=== PATIENT | female | born 1950 | race Caucasian/White ===

== ENCOUNTER 2023-04-04 11:32 | Inpatient (IN) | payer MEDICARE, MEDICAID, SELFPAY ==
[2023-04-04] VITALS (85 sets, daily range): BP systolic 107–156; BP diastolic 41–80; PULSE 49–94; RESP 7–27; TEMP 36.2–37.3; O2SAT 82–100; BMI 22.0; BMI 24.0
--- NOTE | 2023-04-04 11:54 | ED.GENADUL1 ---
HPI - General Adult General Chief complaint: Shortness of Breath/Dyspnea Stated complaint: SHORTNESS OF BREATH Time Seen by Provider: 04/04/23 11:44 Source: patient and family Mode of arrival: Wheelchair Limitations: no limitations History of Present Illness HPI narrative: here complaining of multiple multiple complaints. She hasn't seen her doctor who moved out of the community recently. She uses oxygen at 4 L chronically for chronic obstructive pulmonary disease. She quit smoking one year ago. She has chief complaint today of increasing shortness of breath and abdominal pain. She lives with her son, but he works most the day. He says that she's been getting forgetful. She's had falls at home. He says that she is sleepy all the time. We have no old charts on her here. We have no old EKGs. She denies any heaviness or pressure in her chest. She has nausea witthout vomiting. She has dizziness. She has noise in her ears.medication list does not list any NSAIDs. Related Data Home Medications Medication Instructions Recorded Confirmed albuterol sulfate 90 mcg/actuation 2 puff inhalation Q4H PRN 04/04/23 04/04/23 aerosol inhaler shortness of breath or wheezing atorvastatin 20 mg tablet 20 mg PO DAILY 04/04/23 04/04/23 budesonide 0.5 mg/2 mL suspension 0.5 mg inhalation DAILY 04/04/23 04/04/23 for nebulization fluticasone fur. 100 mcg-umeclid 1 inh inhalation Q24H 04/04/23 04/04/23 62.5 mcg-vilant 25 mcg inhalat.powder (Trelegy Ellipta) levothyroxine 125 mcg tablet 125 mcg PO DAILY 04/04/23 04/04/23 pregabalin 150 mg capsule 150 mg PO Q8H 04/04/23 04/04/23 quetiapine 100 mg tablet 100 mg PO BID 04/04/23 04/04/23 Allergies Allergy/AdvReac Type Severity Reaction Status Date / Time No Known Drug Allergies Allergy Verified 04/04/23 11:36 PFSH PFSH Social History Smoking status: Former smoker Exam Narrative Exam Narrative: 72-year-old female appears older than stated age. She does appear pale. Vital signs are name of normal. She's not tachycardic but she is on a beta madhu. Blood pressure is normal she's not cool clammy or diaphoretic. She is oriented ?3 somewhat of a limited historian and her answer to most questions is that she's had these symptoms for a while additionally she said that she has noticed her bowel movements have been blackish color for a while. Same thing with her abdominal discomfort. She does not have any acute respiratory distress her pulse oximetry is a hundred percent on 4 L. Constitutional there is no scleral icterus. Conjunctiva ispale. ENT shows poor dental repair Airways intact. Lungs are clear with no wheezes rales but there is some scattered rhonchi. There is no retractions or coughing. Heart sounds sinus rhythm confirmed on 12-lead EKG with no ectopy. Abdomen she has mid. Umbilical discomfort sympttomatically but no masses, no hepatosplenomegaly. No rebound or rigidity. Rectal examination shows dark brownish stool is not melanotic. It eventually tested positive for occult blood. Extremities showed no evidence of edema or swelling. Constitutional Vital Signs, click to edit/add: Last Vital Signs Temp 98 F 04/04/23 13:55 Pulse 58 L 04/04/23 15:00 Resp 17 04/04/23 15:00 BP 135/45 L 04/04/23 15:00 Pulse Ox 100 04/04/23 14:30 O2 Del Method Nasal Cannula 04/04/23 12:33 O2 Flow Rate 4 04/04/23 12:33 Course Vital Signs Vital signs: Vital Signs Temperature 97.6 F 04/04/23 11:36 Pulse Rate 94 H 04/04/23 11:36 Respiratory Rate 20 04/04/23 11:36 Blood Pressure 107/47 L 04/04/23 11:36 Pulse Oximetry 95 04/04/23 11:36 Oxygen Delivery Method Nasal Cannula 04/04/23 11:36 Oxygen Delivery Flow Rate 4 04/04/23 11:36 Temperature 98 F 04/04/23 13:55 Pulse Rate 58 L 04/04/23 15:00 Respiratory Rate 17 04/04/23 15:00 Blood Pressure 135/45 L 04/04/23 15:00 Pulse Oximetry 100 04/04/23 14:30 Oxygen Delivery Method Nasal Cannula 04/04/23 12:33 Oxygen Delivery Flow Rate 4 04/04/23 12:33 Medical Decision Making [facility] Narrative Medical decision making narrative: patient's liver initial after test came back extremely low hemoglobin our platelets and white blood cell call count is appropriate. Two units packed red blood cells were ordered stat. She is actually tolerated this well suggesting this is a chronic blood loss. She is given Protonix intravenously. The case was discussed, at the hospital's request with Dr. rasheed surgeon on-call. He believes the patient should be stabilized before any type of endoscopy procedure be performed. We feel this is probably a slow chronic bleed. The hospital's has agreed to admit her to ICU. She's getting blood transfusions at the time of this dictation. All this was discussed with the son and the patient were in agreement with treatment and therapies Lab Data Labs: Lab Results 04/04/23 04/04/23 04/04/23 Range/Units 11:49 12:35 12:54 WBC 4.7 (4.0-11.0) 10^3/uL RBC 1.74 L (4.20-5.40) 10^6/uL Hgb 3.6 L* (12.0-16.0) g/dL Hct 15.5 L* (36.0-48.0) % MCV 89.1 (81.0-99.0) fL MCH 20.7 L (26.7-34.0) pg MCHC 23.2 L (29.9-35.2) g/dL RDW 22.5 H (11.0-15.0) % Plt Count 320 (150-450) 10^3/uL MPV 12.7 (9.5-13.5) fL Neut % (Auto) 61.1 (43.0-75.0) % Lymph % (Auto) 31.2 (20.5-60.0) % [place] % (Auto) 6.0 (1.7-12.0) % Eos % (Auto) 0.4 L (0.9-7.0) % Baso % (Auto) 0.9 (0.2-2.0) % Neut # (Auto) 2.9 (1.4-6.5) 10^3/uL Lymph # (Auto) 1.5 (1.2-3.8) 10^3/uL [place] # (Auto) 0.3 (0.3-0.8) 10^3/uL Eos # (Auto) 0.0 (0.0-0.7) 10^3/uL Baso # (Auto) 0.0 (0.0-0.1) 10^3/uL Abs Immat Gran (auto) 0.02 (0.00-0.03) 10^3/uL Imm/Tot Granulo (auto) 0.4 (0.0-0.5) % VBG pH 7.357 (7.330-7.430) VBG pCO2 68.0 H (40.0-52.0) mmHg Sodium 143 (136-145) mmol/L Potassium 4.6 (3.5-5.1) mmol/L Chloride 102 (98-107) mmol/L Carbon Dioxide 38.2 H (21.0-32.0) mmol/L Anion Gap 7.4 BUN 14.0 (7.0-18.0) mg/dL Creatinine 0.93 (0.55-1.02) mg/dL Est GFR ( Amer) >60 (>=60) Est GFR (Non-Af Amer) 59 L (>=60) BUN/Creatinine Ratio 15.1 Glucose 179 H (74-106) mg/dL Calcium 8.7 (8.5-10.1) mg/dL Total Bilirubin 0.2 (0.2-1.0) mg/dL AST 15 (15-37) U/L ALT <6 L (14-59) U/L Alkaline Phosphatase 74 (46-116) U/L Troponin I High Sens 10.1 (4.0-51.3) pg/mL NT-Pro-B Natriuret Pep 320.0 (<=900.0) pg/mL Total Protein 7.4 (6.4-8.2) g/dL Albumin 3.4 (3.4-5.0) g/dL Globulin 4.0 g/dL Albumin/Globulin Ratio 0.9 Stool Occult Blood Positive A SARS-CoV-2 (PCR) (NEGATIVE) Blood Type A Positive Antibody Screen Negative Crossmatch See Detail 04/04/23 Range/Units 14:30 WBC (4.0-11.0) 10^3/uL RBC (4.20-5.40) 10^6/uL Hgb (12.0-16.0) g/dL Hct (36.0-48.0) % MCV (81.0-99.0) fL MCH (26.7-34.0) pg MCHC (29.9-35.2) g/dL RDW (11.0-15.0) % Plt Count (150-450) 10^3/uL MPV (9.5-13.5) fL Neut % (Auto) (43.0-75.0) % Lymph % (Auto) (20.5-60.0) % [place] % (Auto) (1.7-12.0) % Eos % (Auto) (0.9-7.0) % Baso % (Auto) (0.2-2.0) % Neut # (Auto) (1.4-6.5) 10^3/uL Lymph # (Auto) (1.2-3.8) 10^3/uL [place] # (Auto) (0.3-0.8) 10^3/uL Eos # (Auto) (0.0-0.7) 10^3/uL Baso # (Auto) (0.0-0.1) 10^3/uL Abs Immat Gran (auto) (0.00-0.03) 10^3/uL Imm/Tot Granulo (auto) (0.0-0.5) % VBG pH (7.330-7.430) VBG pCO2 (40.0-52.0) mmHg Sodium (136-145) mmol/L Potassium (3.5-5.1) mmol/L Chloride (98-107) mmol/L Carbon Dioxide (21.0-32.0) mmol/L Anion Gap BUN (7.0-18.0) mg/dL Creatinine (0.55-1.02) mg/dL Est GFR ( Amer) (>=60) Est GFR (Non-Af Amer) (>=60) BUN/Creatinine Ratio Glucose (74-106) mg/dL Calcium (8.5-10.1) mg/dL Total Bilirubin (0.2-1.0) mg/dL AST (15-37) U/L ALT (14-59) U/L Alkaline Phosphatase (46-116) U/L Troponin I High Sens (4.0-51.3) pg/mL NT-Pro-B Natriuret Pep (<=900.0) pg/mL Total Protein (6.4-8.2) g/dL Albumin (3.4-5.0) g/dL Globulin g/dL Albumin/Globulin Ratio Stool Occult Blood SARS-CoV-2 (PCR) Negative (NEGATIVE) Blood Type Antibody Screen Crossmatch Discharge Plan Discharge Chief Complaint: Shortness of Breath/Dyspnea Clinical Impression: Gastrointestinal bleed Patient Disposition: Admitted As Inpatient Time of Disposition Decision: 15:17 Prescriptions / Home Meds: No Action albuterol sulfate 90 mcg/actuation HFA aerosol inhaler 2 puff INHALATION Q4H PRN (Reason: shortness of breath or wheezing) atorvastatin 20 mg tablet 20 mg PO DAILY budesonide 0.5 mg/2 mL suspension for nebulization 0.5 mg inhalation DAILY Trelegy Ellipta 100-62.5-25 mcg blister with device 1 inh INHALATION Q24H levothyroxine 125 mcg tablet 125 mcg PO DAILY pregabalin 150 mg capsule 150 mg PO Q8H quetiapine 100 mg tablet 100 mg PO BID Referrals: JOYCE GOULD [Primary Care Provider] - 1 week
--- NOTE | 2023-04-04 11:56 | ECG_ITS ---
The [facility] [place] Test Date: 2023-04-04 Pat Name: VISHAL ROQUE Department: Room: - Gender: Female Surgery Specialist: : 1950 Requested By: [id number] Order Number: [id number] Reading MD: MIKE VELASQUEZ Measurements Intervals [place] Rate: 79 P: 90 [place]: 164 QRS: 103 QRSD: 136 T: 75 QT: 392 QTc: 427 Interpretive Statements 1100 Sinus rhythm 2450 Right bundle branch block 7100 Abnormal right axis deviation 9150 abnormal ECG No previous ECG available for comparison Electronically Signed On 04-05-2023 7:02:57 EST by MIKE VELASQUEZ
[2023-04-04 12:03] LABS: Basophils Percent Auto 0.9 % (0.2-2.0); Eosinophils Percent Auto 0.4 % (0.9-7.0); Immature Granulocytes Abs Auto 0.02 10^3/uL (0.00-0.03); Immature Granulocytes Pct Auto 0.4 % (0.0-0.5); Lymphocytes Absolute Auto 1.5 10^3/uL (1.2-3.8); Lymphocytes Percent Auto 31.2 % (20.5-60.0); Mean Corpuscular Hemoglobin 20.7 pg (26.7-34.0); Mean Corpuscular Volume 89.1 fL (81.0-99.0); Mean Platelet Volume 12.7 fL (9.5-13.5); Monocytes Absolute Auto 0.3 10^3/uL (0.3-0.8); Neutrophils Absolute Auto 2.9 10^3/uL (1.4-6.5); Neutrophils Percent Auto 61.1 % (43.0-75.0); Platelet Count 320 10^3/uL (150-450); Red Blood Count 1.74 10^6/uL (4.20-5.40); White Blood Count 4.7 10^3/uL (4.0-11.0)
[2023-04-04 12:05] LABS: pH VBG 7.357 (7.330-7.430)
[2023-04-04 12:15] LABS: Hematocrit 15.5 % (36.0-48.0); Hemoglobin 3.6 g/dL (12.0-16.0)
[2023-04-04 12:22] LABS: Mean Corpuscular HGB Conc 23.2 g/dL (29.9-35.2)
[2023-04-04 12:23] LABS: Red Cell Distribution Width 22.5 % (11.0-15.0)
[2023-04-04] MEDS: IPRATROPIUM/ALBUTEROL SULFATE 3 ML AMPUL.NEB IH (12:31)
[2023-04-04 12:32] LABS: Alanine Aminotransferase <6 U/L (14-59); Albumin Globulin Ratio 0.9; Albumin Level 3.4 g/dL (3.4-5.0); Alkaline Phosphatase 74 U/L (46-116); Anion Gap 7.4; Aspartate Amino Transferase 15 U/L (15-37); BUN Creatinine Ratio 15.1; Bilirubin Total 0.2 mg/dL (0.2-1.0); Calcium 8.7 mg/dL (8.5-10.1); Carbon Dioxide 38.2 mmol/L (21.0-32.0); Chloride 102 mmol/L (98-107); Estimated GFR (African America >60 (>=60); Estimated GFR (Non-African Ame 59 (>=60); Glucose 179 mg/dL (74-106); Potassium 4.6 mmol/L (3.5-5.1); Sodium 143 mmol/L (136-145); Total Protein 7.4 g/dL (6.4-8.2); Troponin I High Sensitivity 10.1 pg/mL (4.0-51.3)
--- NOTE | 2023-04-04 12:39 | RESP.RT ---
Wears at home
[2023-04-04] MEDS: 0.9 % SODIUM CHLORIDE 1,000 ML 1000 ML IV (12:48)
--- NOTE | 2023-04-04 13:19 | CT_ITS ---
The [address] [address] Patient Name: VISHAL ROQUE MRN: [id number] date: 1950 Sex: F Assigned Patient Location: ER Current Patient Location: ER Accession/Order Number: [id number] Exam Date: 04/04/2023 13:08 Report Date: 04/04/2023 14:12 At the request of: SEGUN ABBOTT Procedure: CT abdomen pelvis w con EXAM: CT abdomen pelvis w con HISTORY: abdominal pain . Nausea COMPARISON: 2018 CT abdomen pelvis TECHNIQUE: 3 mm axial images were obtained the abdomen and pelvis during 100 mL Omnipaque 300 injection. Sagittal coronal reformations created. Automated exposure control utilized FINDINGS: Cardiomegaly. Small pleural effusions The liver, spleen, stomach, pancreas and adrenal glands appear normal. Previous cholecystectomy.. There is no biliary duct dilatation. Normal adrenal glands. Symmetric enhancing kidneys. Bilateral hypodense nodules favoring cyst measuring 3.5 cm on the left and 1.5 cm on the right. Stable mild pelviectasis of the right kidney. The distal ureters appear unremarkable. The urinary bladder demonstrates an 11 x 16 mm irregular nodule at the base of the left urinary bladder. It has mild peripheral calcification. This is concerning for a bladder neoplasm. Mild amount of pelvic ascites Previous hysterectomy. The adnexa appear unremarkable. Diverticula of the colon with mild to moderate stool burden. Decompressed ascending colon. The terminal ileum appears unremarkable. The appendix is not seen. There is no skeletal abnormality CT/CT abdomen pelvis w con IMPRESSION: Cardiomegaly. Small pleural effusions. Small amount of pelvic ascites. Probable bilateral renal cysts. Diverticulosis. No obstruction or inflammation. 16 mm irregular nodule of the left bladder base concerning for a bladder neoplasm. Consider urologic follow-up Electronically authenticated by: LUIS COOLEY Date: 04/04/2023 14:12
--- NOTE | 2023-04-04 13:25 | XR_ITS ---
The [address] [address] Patient Name: VISHAL ROQUE MRN: [id number] date: 1950 Sex: F Assigned Patient Location: ER Current Patient Location: ED.MAIN Accession/Order Number: [id number] Exam Date: 04/04/2023 13:20 Report Date: 04/04/2023 14:04 At the request of: SEGUN ABBOTT Procedure: XR chest 1V EXAMINATION: XR chest 1V HISTORY: short of breath COMPARISON: XR chest 11/15/2014 FINDINGS: LUNGS: Hyperexpanded lungs suggestive COPD. Mild opacities within left lung base obscuring the heart and diaphragm margin. VASCULATURE: No increased pulmonary vasculature. PLEURA: Blunting of left lateral costophrenic angle suggesting pleural fluid. CARDIAC: Stable mild cardiomegaly. MEDIASTINUM: No visible mass or adenopathy. BONES: No fracture or visible bone lesion. OTHER: Negative. XR/XR chest 1V IMPRESSION: 1. Suspect mild left basilar infiltrates and small pleural effusion. 2. Hyperexpanded lungs suggestive of COPD. 3. Stable cardiomegaly. Electronically authenticated by: FERN NOLAN Date: 04/04/2023 14:04
[2023-04-04 13:54] LABS: Occult Blood Positive
[2023-04-04] MEDS: PANTOPRAZOLE SODIUM 40 MG VIAL IV ×2 (14:25→21:08)
[2023-04-04 14:48] LABS: SARS-CoV-2 Ag NEGATIVE (NEGATIVE)
[2023-04-04 17:36] LABS: Hematocrit 23.4 % (36.0-48.0); Hemoglobin 6.9 g/dL (12.0-16.0)
--- NOTE | 2023-04-04 18:25 | PC.NURSE ---
blood transfusion was initiated at approximately 1542 by nathalie garay RN and was ended at 1700 by Gilmar Donaldson RN. Unit number was [id number]
[2023-04-04] MEDS: QUETIAPINE FUMARATE 100 MG TABLET PO (20:24)
[2023-04-04] MEDS: ATORVASTATIN CALCIUM 20 MG TABLET PO (20:24)
[2023-04-04] MEDS: PREGABALIN 75 MG CAPSULE 150 MG PO (21:07)
[2023-04-04] MEDS: BENZOCAINE/MENTHOL SORE THROAT LOZENGE 1 LOZENGE MM (21:09)
[2023-04-05] VITALS (148 sets, daily range): BP systolic 109–157; BP diastolic 38–68; PULSE 49–100; RESP 11–27; TEMP 36.1–36.9; O2SAT 87–100
--- NOTE | 2023-04-05 | OP_ITS ---
OPERATION DATE: ??04/05/2023 PREOPERATIVE DIAGNOSIS:? Anemia, guaiac positive stool. POSTOPERATIVE DIAGNOSIS:? Mild antral gastritis. PROCEDURE:? EGD. ANESTHESIA:? Monitored anesthesia care. ESTIMATED BLOOD LOSS:? Zero. INDICATIONS AND CONSENT:? Patient is a 72-year-old female with severe COPD on home oxygen, who presented to the hospital with hemoglobin of 3.5 and not feeling well for three or four weeks.? She also had some intermittent epigastric pain, was found to have a guaiac positive stool.? Abdominal/pelvis CT scan was negative.? Indications, risks, benefits, alternatives of proceeding with EGD for further evaluation were explained extensively to the patient, including the risks of bleeding, aspiration, esophageal/gastric/duodenal perforation or anesthetic complications.? All of her questions were answered.? Informed consent was obtained. PROCEDURE:? Patient brought to the operating room, placed in the left lateral decubitus position.? Monitored anesthesia care was provided.? Bite block was placed in the patient?s mouth.? Scope was inserted into the oropharynx.? Under direct visualization, it was advanced into the esophagus, past the cricopharyngeus, down to the stomach.? The stomach was insufflated with air.? The pylorus was traversed down to the descending portion of the duodenum.? There was no evidence of duodenitis or ulceration.? There was no scarring within the pyloric channel.? There was no old or new blood.? There was some very mild antral gastritis consisting just of erythema.? No ulcerations.? No bleeding.? Scope was retroflexed.? There was no significant hiatal hernia.? GE junction was noted at approximately 39 cm.? There was no distal esophagitis or Dumont?s changes. ?The remainder of the esophagus was unremarkable.? The scope was then withdrawn.? Patient tolerated procedure well, was back to the ICU in good condition. CC:? Kelechi Evans M.D. ? Jeffrey Sanders M.D. JESSICA
--- NOTE | 2023-04-05 | CONS_ITS ---
CONSULTATION DATE: ??04/05/2023 REASON FOR CONSULTATION:? Anemia, guaiac positive stool. HISTORY OF PRESENT ILLNESS:? Patient is a 72-year-old female with severe COPD on 4 liters of home oxygen continuously.? She also has a history of hyperlipidemia, hypothyroidism, chronic pain.? She did quit smoking one year ago.? She presented to the emergency room yesterday with severe weakness as well as not feeling well, increased fatigue.? Workup in the emergency room revealed severe anemia with a hemoglobin of 3.5, normal platelet count.? BUN and creatinine were unremarkable.? She does report having these problems for about 3-4 weeks.? The son reports that she has been having epigastric pain and poor appetite, as well as some early satiety.? Patient is a very poor historian.? She denies taking any NSAIDs or aspirin or steroids recently.? Does have a remote history of some kind of stomach problem, but she is unclear on this, but it was more than 10 years ago.? She has had several abdominal surgeries.? She is not clear on these either.? She does have an infraumbilical incision and reports possible oophorectomy or ovarian cystectomy, possible appendix surgery, but she could not remember specifically.? Patient was admitted to the hospital last night and given four units of packed red blood cells.? Hemoglobin today had increased to 9.2 with hematocrit of 30.6, platelet count is 166,000.? Patient has had no bowel movements overnight.? She denies any bloody stools or change in her bowel habits.? In the emergency room, she did gave guaiac positive stool that was reported to be dark brown, not melena.? ALLERGIES: ?Patient has no known drug allergies.?? MEDICATIONS:? Home medications include albuterol, atorvastatin, budesonide inhaler, levothyroxine, pregabalin and quetiapine. SOCIAL HISTORY:? Patient is a former smoker, quit a year ago.? Denies alcohol use or illicit drug use.? FAMILY HISTORY:? Noncontributory. REVIEW OF SYSTEMS:? Ten system review of systems is negative for recent weight loss or weight gain.? She has had increased fatigue and light-headedness.? Also complains of earache or dizziness.? No headaches, seizures or tremors.? No easy bruising or bleeding.? No chest pain or palpitations.? She does have chronic shortness of breath and wheezing.? No hemoptysis.? Does have a chronic cough.? She does report intermittent epigastric abdominal pain as well as early satiety.? No dysphagia.? She denies GERD symptoms.? No melena, hematochezia or bright red blood per rectum.? No dysuria, frequency, urgency or hematuria.? No headaches, seizures or tremors.? PHYSICAL EXAM:? VITAL SIGNS:? Patient?s blood pressure is 114/50.? Pulse is 56 and regular.? Respiratory rate is 18.? She is afebrile.? O2 saturation is 100% on 4 liters nasal cannula.? GENERAL:? In general, she is an elderly female, appears older than her stated age.? HEENT:? Normocephalic, atraumatic.? Sclerae anicteric.? Conjunctiva are not injected.? Oral mucosa is moist. NECK:? Supple.? There is no adenopathy, thyromegaly or JVD. LUNGS:? Reveal expiratory wheezes bilaterally with decreased breath sounds at the bases.? CARDIAC EXAM:? Regular rhythm and rate without appreciable murmurs, rubs or gallops. ABDOMEN:? Soft.? There are positive bowel sounds.? It is minimally distended.? There is epigastric tenderness with no peritoneal signs.? No masses.? No hepatosplenomegaly.? No hernias.? No CVA tenderness.? SKIN:? Warm and dry without lesions, rashes or ulcers. NEURO EXAM:? Non-focal.? Non-lateralizing.? Patient is awake, alert, oriented with appropriate affect. She is a very poor historian. ASSESSMENT:? A 72-year-old female with severe anemia that responded to a transfusion with guaiac positive stools as well. PLAN:? To proceed with EGD under anesthesia for further evaluation.? Indications, risks, benefits, alternatives of proceeding with EGD were explained extensively to the patient, including risks of bleeding, aspiration, esophageal/gastric/duodenal perforation or anesthetic complications.? All of her questions were answered. Informed consent was obtained.? CC:? Kelechi Evans M.D. ? Jeffrey Sanders M.D. JESSICA
--- NOTE | 2023-04-05 00:04 | PC.NURSE ---
Upon entering the patient's room at 1900 the unit of PRBC was transfused [id number]. See charted vital signs. Patient asymptomatic,denies any chest pain,SOB.
[2023-04-05 00:35] LABS: Hemoglobin 9.4 g/dL (12.0-16.0)
[2023-04-05 04:37] LABS: Basophils Percent Auto 0.6 % (0.2-2.0); Eosinophils Percent Auto 0.4 % (0.9-7.0); Hematocrit 30.6 % (36.0-48.0); Hemoglobin 9.2 g/dL (12.0-16.0); Immature Granulocytes Abs Auto 0.06 10^3/uL (0.00-0.03); Immature Granulocytes Pct Auto 0.9 % (0.0-0.5); Lymphocytes Absolute Auto 1.6 10^3/uL (1.2-3.8); Lymphocytes Percent Auto 22.3 % (20.5-60.0); Mean Corpuscular HGB Conc 30.1 g/dL (29.9-35.2); Mean Corpuscular Hemoglobin 26.4 pg (26.7-34.0); Mean Corpuscular Volume 87.9 fL (81.0-99.0); Mean Platelet Volume 11.6 fL (9.5-13.5); Monocytes Absolute Auto 0.7 10^3/uL (0.3-0.8); Monocytes Percent Auto 9.6 % (1.7-12.0); Neutrophils Absolute Auto 4.6 10^3/uL (1.4-6.5); Neutrophils Percent Auto 66.2 % (43.0-75.0); Platelet Count 166 10^3/uL (150-450); Red Blood Count 3.48 10^6/uL (4.20-5.40); Red Cell Distribution Width 16.4 % (11.0-15.0)
[2023-04-05 05:25] LABS: Alanine Aminotransferase <6 U/L (14-59); Albumin Globulin Ratio 0.9; Alkaline Phosphatase 69 U/L (46-116); Anion Gap 1.8; Aspartate Amino Transferase 10 U/L (15-37); BUN Creatinine Ratio 15.9; Bilirubin Total 1.1 mg/dL (0.2-1.0); Calcium 8.4 mg/dL (8.5-10.1); Carbon Dioxide 40.3 mmol/L (21.0-32.0); Chloride 106 mmol/L (98-107); Estimated GFR (African America >60 (>=60); Estimated GFR (Non-African Ame >60 (>=60); Globulin 3.2 g/dL; Glucose 87 mg/dL (74-106); Potassium 4.1 mmol/L (3.5-5.1); Sodium 144 mmol/L (136-145); Total Protein 6.2 g/dL (6.4-8.2)
[2023-04-05] MEDS: LEVOTHYROXINE SODIUM 125 MCG TABLET PO (06:28)
[2023-04-05] MEDS: PREGABALIN 75 MG CAPSULE 150 MG PO ×3 (06:28→21:32)
--- NOTE | 2023-04-05 09:23 | CM.NOTE ---
Rounding with Dr. Evans and RAD Maharaj. Son at bedside. Goal is to return home. Continue to await PT and OT evals. Dr. Horn planning on EGD today per Dr. Evans. Continue to follow for discharge needs.
--- NOTE | 2023-04-05 09:23 | CM.NOTE ---
Discussed with pt and son Important Message From Medicare, both verbalize understanding and son signs for pt. Original given to pt and copy placed on pt's chart.
[2023-04-05] MEDS: ALBUTEROL SULFATE 2.5 MG/3 ML VIAL NEB IH (10:47)
--- NOTE | 2023-04-05 11:18 | PM.HP ---
H&P: HPI History of Present Illness Chief complaint: SOB, abdominal pain Narrative: 72 y/o female to ER with SOB and abdominal pain. History of COPD and on home O2. C/o increased weakness and fatigue for several weeks. C/o abdominal discomfort in epigastric region for months. Reports stool dark and black for months. Denies NSAID use and no recent steroids. Recent constipation and has been using enemas few times a week. Family noticed patient appeared pale. Continued weakness and to ER. Labs showed severe anemia with hgb 3.6. CT abdomen showed diverticulosis and lesion in bladder. Admitted for treatment. Gave 2 units PRBC and hgb increased to 6.9. Gave 2 additional units. Started IV protonix and general surgery consulted. Review of Systems ROS Constitutional Reports: fatigue; Denies: fever or chills Cardiovascular Reports: lightheadedness; Denies: chest pain, palpitations or edema Respiratory Reports: shortness of breath; Denies: cough or wheezing Gastrointestinal Reports: abdominal pain, constipation and other (Dark stools); Denies: nausea, vomiting or diarrhea [facility] Medical History (Updated 04/05/23 @ 11:25 by Kelechi Evans MD) Hypothyroid ?E03.9 - Hypothyroidism, unspecified (ICD-10) Social History Smoking status: Former smoker Meds Home Medications and Allergies Home Medications Medication Instructions Recorded Confirmed Type albuterol sulfate 90 mcg/actuation 2 puff inhalation Q4H PRN 04/04/23 04/04/23 History aerosol inhaler shortness of breath or wheezing atorvastatin 20 mg tablet 20 mg PO DAILY 04/04/23 04/04/23 History budesonide 160 mcg-glycopyr 9 2 inh inhalation BID 04/04/23 04/04/23 History mcg-formot 4.8 mcg/actuation HFA inhaler (Breztri Aerosphere) levothyroxine 125 mcg tablet 125 mcg PO DAILY 04/04/23 04/04/23 History pregabalin 150 mg capsule 150 mg PO Q8H 04/04/23 04/04/23 History quetiapine 100 mg tablet 100 mg PO BID 04/04/23 History Allergies Allergy/AdvReac Type Severity Reaction Status Date / Time No Known Drug Allergies Allergy Verified 04/04/23 16:06 Exam Constitutional Vital Signs, click to edit/add: Last Vital Signs Temp 98.4 F 04/05/23 08:00 Pulse 56 L 04/05/23 10:47 Resp 18 04/05/23 10:47 BP 114/50 04/05/23 08:05 Pulse Ox 100 04/05/23 10:47 O2 Del Method Nasal Cannula 04/05/23 04:00 O2 Flow Rate 4 04/05/23 04:00 Documenting provider has reviewed patient's vital signs: yes Common normals: no apparent distress, oriented x3 and alert HENMT Common normals: normocephalic Eye Common normals: PERRL and EOMs intact bilaterally Respiratory Common normals: normal respiratory effort and clear to auscultation bilaterally Cardio Common normals: regular rate, regular rhythm, no gallops, no murmurs and no rub GI Common normals: Normal to inspection, nondistended, normoactive bowel sounds present Palpation: soft and tender Details: epigastric; no guarding Extremity Common normals: no pedal edema Results Labs Labs: Short CBC 04/04/23 04/04/23 04/05/23 Range/Units 11:49 17:25 00:26 WBC 4.7 (4.0-11.0) 10^3/uL Hgb 3.6 L* 6.9 L* D 9.4 L (12.0-16.0) g/dL Hct 15.5 L* 23.4 L* (36.0-48.0) % Plt Count 320 (150-450) 10^3/uL 04/05/23 Range/Units 04:12 WBC 7.0 (4.0-11.0) 10^3/uL Hgb 9.2 L (12.0-16.0) g/dL Hct 30.6 L (36.0-48.0) % Plt Count 166 (150-450) 10^3/uL BMP 04/04/23 04/05/23 11:49 04:12 Sodium 143 144 Potassium 4.6 4.1 Chloride 102 106 Carbon Dioxide 38.2 H 40.3 H BUN 14.0 10.0 Creatinine 0.93 0.63 Glucose 179 H 87 Calcium 8.7 8.4 L Liver Function 04/04/23 04/05/23 Range/Units 11:49 04:12 Total Bilirubin 0.2 1.1 H (0.2-1.0) mg/dL AST 15 10 L (15-37) U/L ALT <6 L <6 L (14-59) U/L Alkaline Phosphatase 74 69 (46-116) U/L Albumin 3.4 3.0 L (3.4-5.0) g/dL ABG ABG results: 04/04/23 11:49 VBG pH 7.357 VBG pCO2 68.[address] scan - abdomen: Attestation: I have reviewed the pertinent imaging results. Assessment and Plan Assessment and Plan (1) Gastrointestinal bleed: (2) Iron deficiency anemia due to chronic blood loss: (3) COPD (chronic obstructive pulmonary disease): (4) Chronic hypoxic respiratory failure: (5) Lesion of bladder: Plan Hgb up to 9.2 after 4 units PRBC. Monitor hgb. Continue IV protonix. Will go for EGD later this am. Lesion noted in bladder and will need outpatient urology evaluation and likely cystoscopy. Start PT/OT for weakness. Resume home medicaiton. Will need at least 2 midnights in the hospital.
[2023-04-05] MEDS: LACTATED RINGER'S SOLUTION 1,000 ML 75 ML IV (13:15)
[2023-04-05] MEDS: PANTOPRAZOLE SODIUM 40 MG VIAL IV ×2 (13:16→21:33)
--- NOTE | 2023-04-05 14:45 | CM.NOTE ---
Discussed with pt and son recommendations from PT are for pt to go to skilled facility at discharge. Both verbalize understanding and pt does agree d/t her increased weakness. She would like to go to [facility] in [place]. Clinical faxed to [facility] and spoke with
--- NOTE | 2023-04-05 15:19 | CM.NOTE ---
[facility] called and they are able to accept pt when medically stable to be discharged.
[2023-04-05 15:21] LABS: SARS-CoV-2 NAA NOT DETECTED (NOT DETECTE)
[2023-04-05 16:17] LABS: Hematocrit 34.2 % (36.0-48.0); Hemoglobin 10.8 g/dL (12.0-16.0); Mean Corpuscular HGB Conc 31.6 g/dL (29.9-35.2); Mean Corpuscular Hemoglobin 27.4 pg (26.7-34.0); Mean Corpuscular Volume 86.8 fL (81.0-99.0); Mean Platelet Volume 13.2 fL (9.5-13.5); Platelet Count 155 10^3/uL (150-450); Red Blood Count 3.94 10^6/uL (4.20-5.40); Red Cell Distribution Width 16.8 % (11.0-15.0)
[2023-04-05] MEDS: IPRATROPIUM/ALBUTEROL SULFATE 3 ML AMPUL.NEB IH (20:14)
[2023-04-05] MEDS: BUDESONIDE 0.5 MG/2 ML AMPULE NEB IH (20:14)
[2023-04-05] MEDS: QUETIAPINE FUMARATE 100 MG TABLET PO (21:32)
[2023-04-05] MEDS: FERROUS SULFATE 325 MG TABLET PO (21:32)
[2023-04-05] MEDS: ATORVASTATIN CALCIUM 20 MG TABLET PO (21:32)
[2023-04-05] MEDS: FUROSEMIDE 40 MG/4 ML VIAL IVP (21:44)
[2023-04-05] MEDS: ZOLPIDEM TARTRATE 5 MG TABLET PO (22:30)
[2023-04-06] VITALS (94 sets, daily range): BP systolic 110–124; BP diastolic 37–58; PULSE 55–97; RESP 6–28; TEMP 36.1–36.5; O2SAT 82–100
[2023-04-06] MEDS: IPRATROPIUM/ALBUTEROL SULFATE 3 ML AMPUL.NEB IH ×4 (04:45→20:10)
[2023-04-06 05:29] LABS: Basophils Percent Auto 0.3 % (0.2-2.0); Eosinophils Percent Auto 0.3 % (0.9-7.0); Hematocrit 33.9 % (36.0-48.0); Hemoglobin 9.9 g/dL (12.0-16.0); Immature Granulocytes Abs Auto 0.04 10^3/uL (0.00-0.03); Immature Granulocytes Pct Auto 0.6 % (0.0-0.5); Lymphocytes Absolute Auto 1.6 10^3/uL (1.2-3.8); Lymphocytes Percent Auto 25.8 % (20.5-60.0); Mean Corpuscular HGB Conc 29.2 g/dL (29.9-35.2); Mean Corpuscular Hemoglobin 26.5 pg (26.7-34.0); Mean Corpuscular Volume 90.9 fL (81.0-99.0); Mean Platelet Volume 12.6 fL (9.5-13.5); Monocytes Absolute Auto 0.7 10^3/uL (0.3-0.8); Monocytes Percent Auto 11.6 % (1.7-12.0); Neutrophils Absolute Auto 3.9 10^3/uL (1.4-6.5); Neutrophils Percent Auto 61.4 % (43.0-75.0); Platelet Count 187 10^3/uL (150-450); Red Blood Count 3.73 10^6/uL (4.20-5.40); Red Cell Distribution Width 17.5 % (11.0-15.0); White Blood Count 6.3 10^3/uL (4.0-11.0)
[2023-04-06] MEDS: PREGABALIN 75 MG CAPSULE 150 MG PO ×2 (05:48→13:34)
[2023-04-06] MEDS: LEVOTHYROXINE SODIUM 125 MCG TABLET PO (05:48)
[2023-04-06 05:49] LABS: Alanine Aminotransferase <6 U/L (14-59); Albumin Globulin Ratio 0.9; Albumin Level 3.1 g/dL (3.4-5.0); Alkaline Phosphatase 75 U/L (46-116); Anion Gap 3.3; Aspartate Amino Transferase 13 U/L (15-37); BUN Creatinine Ratio 12.5; Bilirubin Total 0.3 mg/dL (0.2-1.0); Calcium 8.3 mg/dL (8.5-10.1); Carbon Dioxide 44.8 mmol/L (21.0-32.0); Chloride 102 mmol/L (98-107); Estimated GFR (African America >60 (>=60); Estimated GFR (Non-African Ame >60 (>=60); Globulin 3.6 g/dL; Glucose 100 mg/dL (74-106); Potassium 4.1 mmol/L (3.5-5.1); Sodium 146 mmol/L (136-145); Total Protein 6.7 g/dL (6.4-8.2)
--- NOTE | 2023-04-06 06:00 | XR_ITS ---
The [address] [address] Patient Name: VISHAL ROQUE MRN: [id number] date: 1950 Sex: F Assigned Patient Location: ICU Current Patient Location: ICU Accession/Order Number: [id number] Exam Date: 04/06/2023 05:15 Report Date: 04/06/2023 05:49 At the request of: SHAIKH NATHAN Procedure: XR chest 1V EXAMINATION: XR chest 1V HISTORY: SOB COMPARISON: XR chest 04/04/2023 FINDINGS: LUNGS: Increasing density of opacities obscuring the left diaphragm and lower left heart margin. Right lung is clear. VASCULATURE: No increased pulmonary vasculature. PLEURA: Left pleural effusion. CARDIAC: Stable cardiomegaly. MEDIASTINUM: No visible mass or adenopathy. BONES: No fracture or visible bone lesion. OTHER: Negative. XR/XR chest 1V IMPRESSION: 1. Interval increase in moderate left basilar infiltrates/pneumonia and suspected small- moderate left pleural effusion. Electronically authenticated by: FERN NOLAN Date: 04/06/2023 05:49
[2023-04-06] MEDS: QUETIAPINE FUMARATE 100 MG TABLET PO ×2 (09:53→20:21)
[2023-04-06] MEDS: PANTOPRAZOLE SODIUM 40 MG VIAL IV ×2 (09:53→22:24)
[2023-04-06] MEDS: CEFTRIAXONE 1,000 MG in 0.9 % SODIUM CHLORIDE 50 ML 100 MG IV (09:53)
[2023-04-06] MEDS: BUDESONIDE 0.5 MG/2 ML AMPULE NEB IH ×2 (10:08→20:10)
--- NOTE | 2023-04-06 12:31 | REH.PTDLY ---
Physical Therapy Daily Note PT Daily Note/Assess Start: 04/06/23 12:28 Freq: Status: Active Protocol: Document 04/06/23 12:29 AMINATA (Rec: 04/06/23 12:31 AMINATA [id number]) Visit Not Completed Visit Not Completed Due to: Pt level of alertness Other Reason Visit Not Completed Tried to see patient 2 different times this AM. Unable to wake up and participate. Nursing states she was given sleeping pill last night and has not been able to arouse this morning. Physical Therapy Daily Note/Assessment Time In 11:35 Time Out 11:40
[2023-04-06 14:21] LABS: ABG PCO2 97.9 mmHg (35.0-45.0); Allen Test POSITIVE (POSITIVE); Base Excess ABG 20.5 mmol/L (-2.0-2.0); Liters per Minute 4; O2 Mode NC; Oxygen Saturation ABG 96.4 %; PO2 ABG 80.2 mmHg (80.0-100.0); Puncture Site L RADIAL
[2023-04-06 15:43] LABS: pH ABG 7.343 (7.350-7.450)
[2023-04-06 15:44] LABS: Allen Test POSITIVE (POSITIVE); BIPAP Pressure 16/6; Base Excess ABG 20.4 mmol/L (-2.0-2.0); Fractionated Inspired Oxygen 30 %; HCO3 ABG 46.2 mmol/L (22.0-26.0); O2 Mode BIPAP; Oxygen Saturation ABG 86.9 %; PO2 ABG 49.8 mmHg (80.0-100.0); Puncture Site LR
[2023-04-06 15:45] LABS: Rate 16
[2023-04-06 15:47] LABS: ABG PCO2 85.1 mmHg (35.0-45.0)
[2023-04-06 16:00] LABS: Hematocrit 33.3 % (36.0-48.0); Hemoglobin 9.6 g/dL (12.0-16.0)
[2023-04-06 16:12] LABS: Ammonia <10 umol/L (11-32)
--- NOTE | 2023-04-06 16:23 | PM.IMPN1 ---
Progress Note: A&P Assessment and Plan (1) Gastrointestinal bleed: Assessment and Plan: Received 4 units PRBC. Hb remains stable and no evidence of overt/bleeding noted. On IV protonix. EGD - no active pathology noted. Qualifiers: GI bleed type/associated pathology: unspecified gastrointestinal hemorrhage type Qualified Code(s): K92.2 - Gastrointestinal hemorrhage, unspecified (2) Acute respiratory failure with hypercapnia: Assessment and Plan: Patient noted to be drowsy/lethargic for which an ABG was ordered that revealed acute resp failure with hypercapnia. Patient was started on BIPAP and repeat ABG showed improvement in her her ph, PCO2 and mental status. Decrease Lyrica down to 100 q12 - she was previously on 150 TID. (3) Acute congestive heart failure: Assessment and Plan: Pleural effusion and volume overload. Started on IV lasix. 2D ECHO ordered to assess cardiac structure (4) Bacterial pneumonia: Assessment and Plan: Worsening infiltrate noted on CXR. Started on rocephin (5) Iron deficiency anemia due to chronic blood loss: Assessment and Plan: Required 4 units PRBC. Will order IV iron x 1 (6) COPD (chronic obstructive pulmonary disease): Assessment and Plan: COPD with chronic resp with hypoxia. No active wheezing noted C/w duonebs. Qualifiers: COPD type: unspecified COPD Qualified Code(s): J44.9 - Chronic obstructive pulmonary disease, unspecified (7) Chronic hypoxic respiratory failure: Assessment and Plan: On 4 L O2. At baseline. Monitor. (8) Lesion of bladder: Assessment and Plan: incidental finding. Will need outpatient f/u with Urology. (9) Hypothyroid: Assessment and Plan: c/w levothyroxine (10) HLD (hyperlipidemia): Assessment and Plan: C/w Lipitor Plan Patient critically sick with high risk of worsening, significant morbidity and at risk of mortality. Critical care time spent over 50 minutes in her assessment, evaluation, clinical decision making Internal Medicine - PN: Subj Subjective Interval history: Seen and examined. Patient appears drowsy, confused. She is arousable easily but goes to sleep right away. Exam Constitutional Vital Signs, click to edit/add: Last Vital Signs Temp 97.0 F L 04/06/23 14:00 Pulse 71 04/06/23 16:07 Resp 16 04/06/23 14:00 BP 110/54 12/02/23 14:00 Pulse Ox 91 L 04/06/23 16:07 O2 Del Method BIPAP 04/06/23 14:00 O2 Flow Rate 4 04/06/23 08:00 FiO2 40 04/06/23 16:07 Documenting provider has reviewed patient's vital signs: yes Common normals: no apparent distress and oriented x3 General appearance: cooperative, lethargic and frail appearing Respiratory Common normals: normal respiratory effort Effort & inspection: able to speak in complete sentences Other: Crackles at lung bases. Diminished lung sounds at bases. Cardio Common normals: regular rate, S1 normal heart sound and S2 normal heart sound Rate: regular rate Heart sounds: S1 normal and S2 normal GI Common normals: Normal to inspection, nondistended, normoactive bowel sounds present and soft to palpation Palpation: soft and tender (epigastric tenderness) Neuro Common normals: oriented x3, moves all extremities and no focal motor deficits Other: lethargic, drowsy, easily arousable Internal Medicine - PN: Obj Da Labs Labs: Laboratory Results - last 24 hr 04/05/23 04/06/23 04/06/23 16:13 04:51 14:15 WBC 7.0 6.3 RBC 3.94 L 3.73 L Hgb 10.8 L 9.9 L Hct 34.2 L 33.9 L MCV 86.8 90.9 MCH 27.4 26.5 L MCHC 31.6 29.2 L RDW 16.8 H 17.5 H Plt Count 155 187 MPV 13.2 12.6 Neut % (Auto) 61.4 Lymph % (Auto) 25.8 [place] % (Auto) 11.6 Eos % (Auto) 0.3 L Baso % (Auto) 0.3 Neut # (Auto) 3.9 Lymph # (Auto) 1.6 [place] # (Auto) 0.7 Eos # (Auto) 0.0 Baso # (Auto) 0.0 Abs Immat Gran (auto) 0.04 H Imm/Tot Granulo (auto) 0.6 H Puncture Site L radial ABG pH 7.290 L* ABG pCO2 97.9 H* ABG pO2 80.2 ABG HCO3 47.0 H ABG O2 Saturation 96.4 ABG Base Excess 20.5 H [place] Test Positive O2 Liters/Min 4 FiO2 BiPAP Sodium 146 H Potassium 4.1 Chloride 102 Carbon Dioxide 44.8 H Anion Gap 3.3 BUN 11.0 Creatinine 0.88 Est GFR ( Amer) >60 Est GFR (Non-Af Amer) >60 BUN/Creatinine Ratio 12.5 Glucose 100 Calcium 8.3 L Total Bilirubin 0.3 AST 13 L ALT <6 L Alkaline Phosphatase 75 Ammonia Total Protein 6.7 Albumin 3.1 L Globulin 3.6 Albumin/Globulin Ratio 0.9 04/06/23 04/06/23 15:35 15:55 WBC RBC Hgb 9.6 L Hct 33.3 L MCV MCH MCHC RDW Plt Count MPV Neut % (Auto) Lymph % (Auto) [place] % (Auto) Eos % (Auto) Baso % (Auto) Neut # (Auto) Lymph # (Auto) [place] # (Auto) Eos # (Auto) Baso # (Auto) Abs Immat Gran (auto) Imm/Tot Granulo (auto) Puncture Site Lr ABG pH 7.343 L ABG pCO2 85.1 H* ABG pO2 49.8 L ABG HCO3 46.2 H ABG O2 Saturation 86.9 ABG Base Excess 20.4 H [place] Test Positive O2 Liters/Min FiO2 30 BiPAP 16/6 Sodium Potassium Chloride Carbon Dioxide Anion Gap BUN Creatinine Est GFR ( Amer) Est GFR (Non-Af Amer) BUN/Creatinine Ratio Glucose Calcium Total Bilirubin AST ALT Alkaline Phosphatase Ammonia <10 L Total Protein Albumin Globulin Albumin/Globulin Ratio
[2023-04-06] MEDS: ATORVASTATIN CALCIUM 20 MG TABLET PO (20:21)
[2023-04-06] MEDS: FUROSEMIDE 40 MG/4 ML VIAL IVP (20:33)
[2023-04-07] VITALS (71 sets, daily range): BP systolic 115–130; BP diastolic 53–58; PULSE 60–107; RESP 13–27; TEMP 36.9; O2SAT 83–98
[2023-04-07] MEDS: IPRATROPIUM/ALBUTEROL SULFATE 3 ML AMPUL.NEB IH ×4 (04:48→21:27)
[2023-04-07 05:47] LABS: Basophils Percent Auto 0.3 % (0.2-2.0); Eosinophils Percent Auto 0.3 % (0.9-7.0); Hematocrit 32.9 % (36.0-48.0); Hemoglobin 9.4 g/dL (12.0-16.0); Immature Granulocytes Abs Auto 0.02 10^3/uL (0.00-0.03); Immature Granulocytes Pct Auto 0.3 % (0.0-0.5); Lymphocytes Absolute Auto 0.9 10^3/uL (1.2-3.8); Lymphocytes Percent Auto 15.1 % (20.5-60.0); Mean Corpuscular HGB Conc 28.6 g/dL (29.9-35.2); Mean Corpuscular Hemoglobin 26.4 pg (26.7-34.0); Mean Corpuscular Volume 92.4 fL (81.0-99.0); Mean Platelet Volume 12.1 fL (9.5-13.5); Monocytes Absolute Auto 0.6 10^3/uL (0.3-0.8); Monocytes Percent Auto 10.2 % (1.7-12.0); Neutrophils Absolute Auto 4.3 10^3/uL (1.4-6.5); Neutrophils Percent Auto 73.8 % (43.0-75.0); Platelet Count 172 10^3/uL (150-450); Red Blood Count 3.56 10^6/uL (4.20-5.40); White Blood Count 5.8 10^3/uL (4.0-11.0)
[2023-04-07 06:09] LABS: Alanine Aminotransferase 11 U/L (14-59); Albumin Globulin Ratio 0.9; Albumin Level 2.9 g/dL (3.4-5.0); Alkaline Phosphatase 72 U/L (46-116); Anion Gap 1.9; Aspartate Amino Transferase 8 U/L (15-37); BUN Creatinine Ratio 10.8; Bilirubin Total 0.4 mg/dL (0.2-1.0); Calcium 8.6 mg/dL (8.5-10.1); Carbon Dioxide 46.9 mmol/L (21.0-32.0); Chloride 101 mmol/L (98-107); Estimated GFR (African America >60 (>=60); Estimated GFR (Non-African Ame 53 (>=60); Globulin 3.4 g/dL; Glucose 80 mg/dL (74-106); Potassium 3.8 mmol/L (3.5-5.1); Sodium 146 mmol/L (136-145); Total Protein 6.3 g/dL (6.4-8.2)
[2023-04-07] MEDS: LEVOTHYROXINE SODIUM 125 MCG TABLET PO (06:28)
[2023-04-07] MEDS: GUAIFENESIN 600 MG TAB.ER.12H PO (08:21)
[2023-04-07] MEDS: QUETIAPINE FUMARATE 100 MG TABLET PO ×2 (08:21→20:34)
[2023-04-07] MEDS: CEFTRIAXONE 1,000 MG in 0.9 % SODIUM CHLORIDE 50 ML 100 MG IV (08:21)
[2023-04-07] MEDS: BUDESONIDE 0.5 MG/2 ML AMPULE NEB IH ×2 (10:38→21:27)
--- NOTE | 2023-04-07 15:49 | RESP.RT ---
decreased to 4 LPM
--- NOTE | 2023-04-07 18:11 | CA_ITS ---
Patient Name: VISHAL ROQUE MR#: [id number] : 1950 Exam Date: 04/08/2023 Ordering Doctor: SHAIKH Abdiel EVANS . ECHOCARDIOGRAM REPORT PROCEDURE: CA ECHO DOPPLER COMPLETE INDICATIONS: Congestive heart failure, pneumonia, COPD COMPARISON: None. DESCRIPTION: COMPLETE ECHOCARDIOGRAM Real-time transthoracic echocardiography with 2D, M-mode, spectral and color flow Doppler performed. QUALITY: Technically difficult due to patient's condition. 63 , 135# , BSA 1.64 m2 LEFT VENTRICLE: Small chamber size. Normal left ventricular wall thickness. LV EF: Global left ventricular systolic function is difficult to assess but appears hyperdynamic; visually estimated ejection fraction is 65 to 70%. Unable to assess regional wall motion abnormalities. DIASTOLIC: Normal diastolic function. ATRIAL SEPTUM: Inadequately seen. LEFT ATRIUM: Normal chamber size. RIGHT ATRIUM: Normal chamber size. RIGHT VENTRICLE: Normal chamber size. Normal systolic function. TRICUSPID VALVE: Normal mobility and thickness. No stenosis with no regurgitation. MITRAL VALVE: Normal mobility and thickness. No evidence of mitral valve stenosis. Mild mitral annular calcification. No mitral regurgitation. AORTIC VALVE: Normal trileaflet appearance. No visible sclerosis. Normal leaflet mobility. No evidence of aortic valve stenosis. No aortic regurgitation. AORTIC ROOT: Normal diameter and appearance. PULMONIC VALVE: Not well visualized. No stenosis. No regurgitation. PERICARDIUM: Small pericardial effusion. No obvious signs of chamber compression. IVC: Collapses with inspirations. CONCLUSION: 1. Global left ventricular systolic function is difficult to assess but appears hyperdynamic; visually estimated ejection fraction is 65 to 70% 2. Small left ventricular chamber size 3. The right ventricle is normal in size and systolic function 4. Normal diastolic function 5. No significant valvular abnormalities 6. A small circumferential pericardial effusion is seen Adult Echocardiography Procedure Report Left Ventricle LVEDD (3.7 - 5.6 cm): 3.75 cm LVESD (2.2 - 4.0 cm): 2.40 cm LVIVS thickness (0.6 - 1.2 cm): 0.79 cm LVPW thickness (0.5 - 1.0 cm): 1.01 cm e': 0.07 m/s E - e': 9.78 LVOT Max Gradient: 2.10 mm[Hg] LVOT Area (cm2): 0.72 m/s Peak Velocity (LVOT): 0.72 m/s Mean Velocity (LVOT): 0.51 m/s LVOT Diameter 2.17 cm Left Atrium LA Volume Index (2D A2C): 24.22 ml/m2 Left Atrium Systolic Dimension: 2.59 cm Mitral Valve MV E to A Ratio: 0.75 Mitral Valve A-Wave Peak Velocity: 0.89 m/s Mitral Valve E-Wave Peak Velocity: 0.67 m/s Right Ventricle Aorta Aortic Valve AoV Area (Peak Joel): 1.69 cm2, 1.69 cm2 AoV Area (VTI): 2.05 cm2, 2.05 cm2 Peak Velocity(Antegrade Flow): 1.58 m/s Peak Gradient(Antegrade Flow): 9.96 mm[Hg] Mean Velocity(Antegrade Flow): 1.03 m/s Mean Gradient(Antegrade Flow): 5.02 mm[Hg] Velocity Time Integral: 26.26 cm Tricuspid Valve Pulmonic Valve Peak Velocity: 0.95 m/s Peak Gradient: 3.57 mm[Hg], 3.59 mm[Hg] Right Atrium Right Atrium Systolic Pressure: 32.21 ml, 32.21 ml Dictated by: Arley Phelan M.D. on 04/08/2023 at 15:36 Approved by: Arley Phelan M.D. on 04/08/2023 at 15:42
--- NOTE | 2023-04-07 18:25 | P.IMPN_ITS ---
Progress Note: A&P Assessment and Plan (1) Gastrointestinal bleed: Assessment and Plan: Received 4 units PRBC. Hb remains stable and no evidence of overt/bleeding noted. On IV protonix. EGD - no active pathology noted. Qualifiers: GI bleed type/associated pathology: unspecified gastrointestinal hemorrhage type Qualified Code(s): K92.2 - Gastrointestinal hemorrhage, unspecified (2) Acute respiratory failure with hypercapnia: Assessment and Plan: Improved with BIPAP. Exacerbated due to Pneumonia, possible HF, and high dose of Lyrica. order BIPAP qhs. (3) Acute congestive heart failure: Assessment and Plan: Pleural effusion and volume overload. on IV lasix. 2D ECHO ordered to assess cardiac structure (4) Bacterial pneumonia: Assessment and Plan: On Rocephin. No resp complaints. Baseline O2 requirement. Repeat CXR tomorrow. (5) Iron deficiency anemia due to chronic blood loss: Assessment and Plan: Required 4 units PRBC. Will order IV iron x 1 (6) COPD (chronic obstructive pulmonary disease): Assessment and Plan: COPD with chronic resp with hypoxia. No active wheezing noted C/w duonebs. Qualifiers: COPD type: unspecified COPD Qualified Code(s): J44.9 - Chronic obstructive pulmonary disease, unspecified (7) Chronic hypoxic respiratory failure: Assessment and Plan: On 4 L O2. At baseline. Monitor. (8) Lesion of bladder: Assessment and Plan: incidental finding. Will need outpatient f/u with Urology. (9) Hypothyroid: Assessment and Plan: c/w levothyroxine (10) HLD (hyperlipidemia): Assessment and Plan: C/w Lipitor Internal Medicine - PN: Subj Subjective Interval history: Seen and examined. Doing well today. Awake and alert. On 4 L O via NC. No overnight events. Exam Constitutional Vital Signs, click to edit/add: Last Vital Signs Temp 98.5 F 04/07/23 07:46 Pulse 82 04/07/23 17:51 Resp 18 04/07/23 15:29 BP 115/58 04/07/23 07:46 Pulse Ox 97 04/07/23 15:48 O2 Del Method Nasal Cannula 04/07/23 15:48 O2 Flow Rate 5 04/07/23 15:48 FiO2 40 04/07/23 04:56 Documenting provider has reviewed patient's vital signs: yes Common normals: no apparent distress and oriented x3 General appearance: cooperative and frail appearing Respiratory Common normals: normal respiratory effort Effort & inspection: able to speak in complete sentences Other: Crackles at lung bases. Diminished lung sounds at bases. Cardio Common normals: regular rate, S1 normal heart sound and S2 normal heart sound Rate: regular rate Heart sounds: S1 normal and S2 normal GI Common normals: Normal to inspection, nondistended, normoactive bowel sounds present and soft to palpation Palpation: soft and tender (epigastric tenderness) Neuro Common normals: oriented x3, moves all extremities and no focal motor deficits Internal Medicine - PN: Obj Da Labs Labs: Laboratory Results - last 24 hr 04/04/23 04/07/23 12:35 05:25 WBC 5.8 RBC 3.56 L Hgb 9.4 L Hct 32.9 L MCV 92.4 MCH 26.4 L MCHC 28.6 L RDW 18.0 H Plt Count 172 MPV 12.1 Neut % (Auto) 73.8 Lymph % (Auto) 15.1 L [place] % (Auto) 10.2 Eos % (Auto) 0.3 L Baso % (Auto) 0.3 Neut # (Auto) 4.3 Lymph # (Auto) 0.9 L [place] # (Auto) 0.6 Eos # (Auto) 0.0 Baso # (Auto) 0.0 Abs Immat Gran (auto) 0.02 Imm/Tot Granulo (auto) 0.3 Sodium 146 H Potassium 3.8 Chloride 101 Carbon Dioxide 46.9 H Anion Gap 1.9 BUN 11.0 Creatinine 1.02 Est GFR ( Amer) >60 Est GFR (Non-Af Amer) 53 L BUN/Creatinine Ratio 10.8 Glucose 80 Calcium 8.6 Total Bilirubin 0.4 AST 8 L ALT 11 L Alkaline Phosphatase 72 Total Protein 6.3 L Albumin 2.9 L Globulin 3.4 Albumin/Globulin Ratio 0.9 Blood Type A Positive Antibody Screen Negative Crossmatch See Detail
[2023-04-07] MEDS: ATORVASTATIN CALCIUM 20 MG TABLET PO (20:34)
[2023-04-07] MEDS: PREGABALIN 100 MG CAPSULE PO (20:34)
[2023-04-07] MEDS: OMEPRAZOLE 40 MG CAPSULE.DR PO (20:34)
[2023-04-07] MEDS: FUROSEMIDE 40 MG/4 ML VIAL IVP (20:34)
[2023-04-08] VITALS (119 sets, daily range): BP systolic 100–147; BP diastolic 56–70; PULSE 65–114; RESP 7–32; TEMP 36.5–36.9; O2SAT 86–99
[2023-04-08 04:45] LABS: Basophils Percent Auto 0.2 % (0.2-2.0); Eosinophils Percent Auto 0.3 % (0.9-7.0); Hemoglobin 8.9 g/dL (12.0-16.0); Immature Granulocytes Abs Auto 0.02 10^3/uL (0.00-0.03); Immature Granulocytes Pct Auto 0.3 % (0.0-0.5); Lymphocytes Percent Auto 16.7 % (20.5-60.0); Mean Corpuscular HGB Conc 28.7 g/dL (29.9-35.2); Mean Corpuscular Hemoglobin 26.4 pg (26.7-34.0); Mean Platelet Volume 11.5 fL (9.5-13.5); Monocytes Absolute Auto 0.6 10^3/uL (0.3-0.8); Monocytes Percent Auto 9.1 % (1.7-12.0); Neutrophils Absolute Auto 4.5 10^3/uL (1.4-6.5); Neutrophils Percent Auto 73.4 % (43.0-75.0); Platelet Count 154 10^3/uL (150-450); Red Blood Count 3.37 10^6/uL (4.20-5.40); Red Cell Distribution Width 18.4 % (11.0-15.0); White Blood Count 6.2 10^3/uL (4.0-11.0)
[2023-04-08] MEDS: IPRATROPIUM/ALBUTEROL SULFATE 3 ML AMPUL.NEB IH ×4 (04:49→20:18)
[2023-04-08 05:02] LABS: Alanine Aminotransferase 10 U/L (14-59); Albumin Globulin Ratio 0.8; Albumin Level 2.8 g/dL (3.4-5.0); Alkaline Phosphatase 68 U/L (46-116); Aspartate Amino Transferase 15 U/L (15-37); BUN Creatinine Ratio 17.8; Bilirubin Total 0.3 mg/dL (0.2-1.0); Calcium 8.9 mg/dL (8.5-10.1); Carbon Dioxide 48.7 mmol/L (21.0-32.0); Chloride 97 mmol/L (98-107); Estimated GFR (African America >60 (>=60); Estimated GFR (Non-African Ame 54 (>=60); Globulin 3.6 g/dL; Glucose 97 mg/dL (74-106); Potassium 3.7 mmol/L (3.5-5.1); Sodium 144 mmol/L (136-145); Total Protein 6.4 g/dL (6.4-8.2)
--- NOTE | 2023-04-08 06:00 | XR_ITS ---
The [address] [address] Patient Name: VISHAL ROQUE MRN: [id number] date: 1950 Sex: F Assigned Patient Location: ICU Current Patient Location: ICU Accession/Order Number: [id number] Exam Date: 04/08/2023 04:38 Report Date: 04/08/2023 06:26 At the request of: SHAIKH NATHAN Procedure: XR chest 1V EXAMINATION: XR chest 1V HISTORY: shortness of breath COMPARISON: XR chest 04/06/2023 FINDINGS: LUNGS: Trace amount stranding adjacent right diaphragm and minimal haziness within left lateral costophrenic angle. VASCULATURE: No increased pulmonary vasculature. PLEURA: Blunting of costophrenic angles bilaterally suggesting pleural fluid. CARDIAC: Stable cardiomegaly. MEDIASTINUM: No visible mass or adenopathy. BONES: No fracture or visible bone lesion. OTHER: Negative. XR/XR chest 1V IMPRESSION: Trace amount of bibasilar infiltrates; improved. 2. Suspect small bilateral pleural effusions. Electronically authenticated by: FERN NOLAN Date: 04/08/2023 06:26
[2023-04-08] MEDS: LEVOTHYROXINE SODIUM 125 MCG TABLET PO (06:10)
--- NOTE | 2023-04-08 08:30 | CM.NOTE ---
Pt's son called and they have changed their mind regarding skilled facility and would like pt to go to [facility]. Spoke with pt after talking with son, pt is in agreement with going to [facility] for skilled therapy at discharge.
[2023-04-08] MEDS: FUROSEMIDE 40 MG TABLET PO (08:31)
[2023-04-08] MEDS: QUETIAPINE FUMARATE 100 MG TABLET PO ×2 (08:31→20:32)
[2023-04-08] MEDS: OMEPRAZOLE 40 MG CAPSULE.DR PO ×2 (08:31→20:32)
[2023-04-08] MEDS: IRON SUCROSE COMPLEX 200 MG in 0.9 % SODIUM CHLORIDE 100 ML 220 MG IV (08:34)
--- NOTE | 2023-04-08 09:00 | CM.NOTE ---
Faxed Clinical to [facility] for new referral and spoke with Day in admissions. Called [facility] to let them know pt has changed mind on facilities.
[2023-04-08] MEDS: CEFTRIAXONE 1,000 MG in 0.9 % SODIUM CHLORIDE 50 ML 100 MG IV (09:15)
--- NOTE | 2023-04-08 10:36 | CM.NOTE ---
[facility] called back and are ok to accept pt. Called pt's son and updated pt. Ok to discharge today per Dr. Adame.
[2023-04-08] MEDS: BUDESONIDE 0.5 MG/2 ML AMPULE NEB IH ×2 (10:50→20:18)
[2023-04-08] MEDS: PREGABALIN 100 MG CAPSULE PO ×2 (11:21→20:32)
--- NOTE | 2023-04-08 11:26 | P.DS_ITS ---
DS: Providers Provider Date of admission: 04/04/23 15:49 Primary care physician: JOYCE GOULD Consults: 04/04/23 Consult to Dietitian Routine Reason For Exam: malnutrition Reason for consultation: malnutrition Has provider been notified: Yes 04/04/23 16:46 Occupational Therapy Eval and Treat Routine Reason for consultation: Weakness Physical Therapy Eval and Treat Routine Reason for consultation: Weakness 04/04/23 16:56 Consult to General Surgeon Routine Consulting Provider: Lc Horn Reason for consultation: GI bleed 04/05/23 Consult to PICC Line RN Routine Consulting Provider: Kelechi Evans Reason for consultation: Difficult access okay for midline Has provider been notified: Yes 04/05/23 21:22 Occupational Therapy Eval and Treat Routine Reason for consultation: Weakness Physical Therapy Eval and Treat Routine Reason for consultation: Weakness Attending physician on discharge: Shaikh Deep Discharging clinician: Shaikh Deep Anticipated date of discharge: 04/08/23 DS: Diagnosis Discharge Diagnosis (1) Gastrointestinal bleed: Assessment and plan: No overt/active bleeding. Chronic and will likely need close monitoring of her HB periodically. Started on PO omeprazole as outpatient. Qualifiers: GI bleed type/associated pathology: unspecified gastrointestinal hemorrhage type Qualified Code(s): K92.2 - Gastrointestinal hemorrhage, unspecified (2) Acute respiratory failure with hypercapnia: Assessment and plan: Resolved. Likely due to CHF and PNA alongwith very high dose of Lyrica given her age, weight. (3) Acute congestive heart failure: Assessment and plan: Unspecified type. No prior hx of CHF. Did well with IV lasix. Will d/c on PO lasix 2D ECHO ordered but results won't be available at the time of discharge and she needs to f/u as outpatient for it. Qualifiers: Heart failure type: unspecified Qualified Code(s): I50.9 - Heart failure, unspecified (4) Bacterial pneumonia: Assessment and plan: Improvement in CXR. Doing well. No resp symptoms. D/c on oral ceftin (5) Iron deficiency anemia due to chronic blood loss: Assessment and plan: Received IV iron. Started on PO iron. Will need periodic monitoring of her CBC (6) COPD (chronic obstructive pulmonary disease): Assessment and plan: Chronic, stable. Qualifiers: COPD type: unspecified COPD Qualified Code(s): J44.9 - Chronic obstructive pulmonary disease, unspecified (7) Chronic hypoxic respiratory failure: Assessment and plan: On 4 L O2 via NC. 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 Outpatient f/u with Urology for cystoscopy (9) Hypothyroid: Assessment and plan: C/w levothyroxine (10) HLD (hyperlipidemia): Assessment and plan: C/w statin DS: Summary Hospital Course Hospital Course: Patient presented to ED with SOB, weakness, found to have Hb of 3.6 Admitted for acute symptomatic anemia likely from GIB. She denied any overt GIB (hematemesis or melena). Received 4 units PRBC in total. Her Hb remained stable throughout hospital admission. She had an EGD - no sig pathology noted. Work up also revealed b/l pleural effusion and consolidation for which she was started on IV rocephin, Lasix. Patient was noted to be very drowsy,lethargic on 04/06 for which an ABG was ordered that revealed acute resp failure with hypercapnia, respiratory acidosis likely from Acute congestive HF, PNA. She also received ambien and is on very high dose of Lyrica considering her age, BMI and resp status and I suspect that certainly contributed to it. She was put on BIPAP with improvement in her mental status, acidosis and hypercapnia. Patient feels well and has no active complaints to offer today. Stable for d/c She will be started on low dose Lasix to maintain euvolemia. She will need periodic monitoring of her anemia with CBC. She was also started on PO iron on discharge. She received one dose IV iron to help build her iron stores. Lyrica dose decreased to 100 q12 and she should avoid sedative/hypnotics in general given her chronic resp failure and COPD. Status at Discharge Functional status at discharge: uses cane/walker Overall status at discharge: patient is back to baseline Time Spent with Patient Time attestation: Total time spent providing and/or coordinating discharge services: Time spent: greater than 30 minutes Exam Constitutional Vital Signs, click to edit/add: Last Vital Signs Temp 98.1 F 04/08/23 07:17 Pulse 88 04/08/23 10:51 Resp 20 04/08/23 10:51 BP 127/56 04/08/23 07:17 Pulse Ox 91 L 04/08/23 10:51 O2 Del Method Nasal Cannula 04/08/23 10:51 O2 Flow Rate 4 04/08/23 10:51 FiO2 40 04/08/23 01:00 Documenting provider has reviewed patient's vital signs: yes Common normals: no apparent distress and oriented x3 General appearance: cooperative and frail appearing Respiratory Common normals: normal respiratory effort and clear to auscultation bilaterally Effort & inspection: able to speak in complete sentences Cardio Common normals: regular rate, S1 normal heart sound and S2 normal heart sound Rate: regular rate Heart sounds: S1 normal and S2 normal Neuro Common normals: oriented x3, moves all extremities and no focal motor deficits DS: Data Data Completed and Pending Labs on day of discharge: Labs from last 24 hours 04/08/23 04:30 WBC 6.2 RBC 3.37 L Hgb 8.9 L Hct 31.0 L MCV 92.0 MCH 26.4 L MCHC 28.7 L RDW 18.4 H Plt Count 154 MPV 11.5 Neut % (Auto) 73.4 Lymph % (Auto) 16.7 L [place] % (Auto) 9.1 Eos % (Auto) 0.3 L Baso % (Auto) 0.2 Neut # (Auto) 4.5 Lymph # (Auto) 1.0 L [place] # (Auto) 0.6 Eos # (Auto) 0.0 Baso # (Auto) 0.0 Abs Immat Gran (auto) 0.02 Imm/Tot Granulo (auto) 0.3 Sodium 144 Potassium 3.7 Chloride 97 L Carbon Dioxide 48.7 H Anion Gap 2.0 BUN 18.0 Creatinine 1.01 Est GFR ( Amer) >60 Est GFR (Non-Af Amer) 54 L BUN/Creatinine Ratio 17.8 Glucose 97 Calcium 8.9 Total Bilirubin 0.3 AST 15 ALT 10 L Alkaline Phosphatase 68 Total Protein 6.4 Albumin 2.8 L Globulin 3.6 Albumin/Globulin Ratio 0.8 Discharge Plan Discharge Disposition: Xfer SNF Discharge Medications: New omeprazole 40 mg capsule,delayed release(DR/EC) 40 mg PO DAILY Qty: 30 0RF cefuroxime axetil 500 mg tablet 500 mg PO BID 5 Days Qty: 10 0RF furosemide [Lasix] 20 mg tablet 20 mg PO DAILY Qty: 30 0RF ferrous sulfate 325 mg (65 mg iron) tablet,delayed release (DR/EC) 325 mg PO DAILY Qty: 30 0RF Continued albuterol sulfate 90 mcg/actuation HFA aerosol inhaler 2 puff INHALATION Q4H PRN (Reason: shortness of breath or wheezing) atorvastatin 20 mg tablet 20 mg PO DAILY levothyroxine 125 mcg tablet 125 mcg PO DAILY quetiapine 100 mg tablet 100 mg PO BID Patient Comments: last filled 02/07/23 for 30 days Breztri Aerosphere 160-9-4.8 mcg/actuation HFA aerosol inhaler 2 inh inhalation BID Changed pregabalin 150 mg capsule 100 mg PO Q12H Qty: 0 0RF Forms: Portal Instructions Follow Up Appointments: F/u PCP in one week CBC in one week to ensure Hemoglobin is stable Outpatient f/u Urology for Suspected bladder neoplasm
[2023-04-08 11:36] LABS: SARS-CoV-2 Ag NEGATIVE (NEGATIVE)
--- NOTE | 2023-04-08 11:37 | CM.NOTE ---
Rounds made with Dr. Adame. Plan is discharge to SNF today..hopeful for [facility] [place].
--- NOTE | 2023-04-08 11:50 | PT.DAILY ---
Physical Therapy Daily Note PT Daily Note/Assess Start: 04/06/23 12:28 Freq: Status: Active Protocol: Document 04/08/23 11:46 ARACELI (Rec: 04/08/23 11:50 BRIANCALEB [id number]) Physical Therapy Daily Note/Assessment Time In/Time Out Time In 09:38 Time Out 09:49 Pain In Pain N/A Pain Out Pain N/A Subjective Subjective Pt's call light is on in the restroom upon arrival. Agrees to allow [employer] MANAGER assist with getting back to chair. Reports having a rough night and did not sleep well. Therapeutic Exercise Time Therapeutic Exercise Minutes (minutes) 3 Therapeutic Exercise Units 0 Therapeutic Exercise Treatment Therapeutic Exercise Treatment Seated bilat LE strengthening ex complete while sitting in BS chair 10x ea - SpO2 between 87-89% with this. Therapeutic Activity Time Therapeutic Activity Minutes (minutes) 6 Therapeutic Activity Units 1 Therapeutic Activity Treatment Chair Transfer Ability Standby Assistance Therapeutic Activity Comments Sit>stand from toilet SBA. Amb 4' to sink with RW to wash hands - assist with IV lines and O2 lines. Pt then amb around room 2 laps with RW SBA for 120' total with assist for lines. SpO2 84% upon completion. Seated rest break taken to recover - Spo2 up to 91% with this break before beginning seated ex. Remains in BS chair upon completion with call light in reach and needs met. Total Physical Therapy Time Total Therapy Minutes 9 Total Physical Therapy Units 1 Summary Daily Note Summary Improved gait endurance but SpO2 levels do drop with this activity.
--- NOTE | 2023-04-08 12:35 | CM.NOTE ---
Called [facility] for transportation, can pick pt up between 1:15-1:45. Informed pt and RN. Called Day in admissions at [facility] to update and faxed discharge summary, med-list and CRF.
--- NOTE | 2023-04-08 13:30 | CM.NOTE ---
Called Day from [place] to update on discharge being cancelled and transportation cancelled. Possible discharge tomorrow.
[2023-04-08] MEDS: FUROSEMIDE 40 MG/4 ML VIAL IVP (14:36)
--- NOTE | 2023-04-08 15:36 | CM.NOTE ---
2nd Notice of Important Message From Medicare discussed with pt, pt denies any questions or concerns.
[2023-04-08 15:43] LABS: SARS-CoV-2 NAA NOT DETECTED (NOT DETECTE)
--- NOTE | 2023-04-08 19:09 | PC.NURSE ---
Pt transferred to room 231. Phone report given to Zoila. Patient belongings accounted for and taken to the room.
--- NOTE | 2023-04-08 19:31 | PC.NURSE ---
Transferred from icu at 1910.
[2023-04-08] MEDS: ATORVASTATIN CALCIUM 20 MG TABLET PO (20:32)
[2023-04-09] VITALS (80 sets, daily range): BP systolic 121–132; BP diastolic 58–65; PULSE 65–97; RESP 0–25; TEMP 36.5–36.9; O2SAT 81–98
[2023-04-09] MEDS: IPRATROPIUM/ALBUTEROL SULFATE 3 ML AMPUL.NEB IH ×5 (04:01→23:16)
[2023-04-09] MEDS: LEVOTHYROXINE SODIUM 125 MCG TABLET PO (06:13)
[2023-04-09 06:35] LABS: Hematocrit 31.3 % (36.0-48.0); Hemoglobin 8.8 g/dL (12.0-16.0); Mean Corpuscular HGB Conc 28.1 g/dL (29.9-35.2); Mean Corpuscular Hemoglobin 26.4 pg (26.7-34.0); Red Blood Count 3.33 10^6/uL (4.20-5.40); White Blood Count 5.7 10^3/uL (4.0-11.0)
[2023-04-09 06:36] LABS: Basophils Percent Auto 0.4 % (0.2-2.0); Eosinophils Percent Auto 0.7 % (0.9-7.0); Immature Granulocytes Pct Auto 0.2 % (0.0-0.5); Mean Platelet Volume 12.1 fL (9.5-13.5); Monocytes Percent Auto 9.9 % (1.7-12.0); Neutrophils Percent Auto 70.8 % (43.0-75.0); Platelet Count 149 10^3/uL (150-450); Red Cell Distribution Width 19.1 % (11.0-15.0)
[2023-04-09 06:37] LABS: Immature Granulocytes Abs Auto 0.01 10^3/uL (0.00-0.03); Monocytes Absolute Auto 0.6 10^3/uL (0.3-0.8)
[2023-04-09 06:38] LABS: Potassium 3.3 mmol/L (3.5-5.1); Sodium 145 mmol/L (136-145)
[2023-04-09 06:39] LABS: Alanine Aminotransferase 13 U/L (14-59); Albumin Globulin Ratio 0.8; Albumin Level 2.8 g/dL (3.4-5.0); Alkaline Phosphatase 67 U/L (46-116); Anion Gap 3.3; Aspartate Amino Transferase 13 U/L (15-37); BUN Creatinine Ratio 22.4; Bilirubin Total 0.3 mg/dL (0.2-1.0); Chloride 97 mmol/L (98-107); Estimated GFR (African America >60 (>=60); Estimated GFR (Non-African Ame 56 (>=60); Globulin 3.7 g/dL; Glucose 133 mg/dL (74-106); Total Protein 6.5 g/dL (6.4-8.2)
--- NOTE | 2023-04-09 07:17 | XR_ITS ---
[address] [address] Patient Name: VISHAL ROQUE MRN: [id number] date: 1950 Sex: F Assigned Patient Location: MS Current Patient Location: MS Accession/Order Number: [id number] Exam Date: 04/09/2023 07:25 Report Date: 04/09/2023 07:52 At the request of: SHAIKH NATHAN Procedure: XR chest 1V EXAMINATION: XR chest 1V HISTORY: SOB COMPARISON: XR chest 04/08/2023 FINDINGS: LUNGS: Moderate opacities within right lung base obscuring the diaphragm margin. Trace amount within lateral left lung base. VASCULATURE: No increased pulmonary vasculature. PLEURA: Small bilateral pleural effusions. CARDIAC: No cardiomegaly or cardiac silhouette abnormality. MEDIASTINUM: No visible mass or adenopathy. BONES: No fracture or visible bone lesion. OTHER: Negative. XR/XR chest 1V IMPRESSION: 1. Moderate right basilar infiltrates suggestive of pneumonia or atelectasis; increased since prior study. 2. Stable mild left basilar infiltrates versus atelectasis. 3. Grossly stable small bilateral pleural effusions. Electronically authenticated by: FERN NOLAN Date: 04/09/2023 07:52
[2023-04-09 07:37] LABS: Glucometer 110 mg/dL (74-106)
[2023-04-09] MEDS: PREGABALIN 100 MG CAPSULE PO ×2 (09:04→21:18)
[2023-04-09] MEDS: FUROSEMIDE 40 MG TABLET PO (09:04)
[2023-04-09] MEDS: QUETIAPINE FUMARATE 100 MG TABLET PO ×2 (09:04→21:18)
[2023-04-09] MEDS: OMEPRAZOLE 40 MG CAPSULE.DR PO ×2 (09:04→21:18)
[2023-04-09] MEDS: CEFTRIAXONE 1,000 MG in 0.9 % SODIUM CHLORIDE 50 ML 100 MG IV (09:08)
--- NOTE | 2023-04-09 11:01 | CM.NOTE ---
Rounds made with Dr. Adame, pt on 6L NC at this time. Pt now has cough and shortness of breath with activity. Dr. Adame decreased oxygen while at bedside to 4L NC and pt's oxygen sat drops to 85%. No discharge today. Dr. Adame discussed with pt about an exacerbation of her COPD and will start treatment.
[2023-04-09 11:19] LABS: Glucometer 153 mg/dL (74-106)
[2023-04-09] MEDS: BUDESONIDE 0.5 MG/2 ML AMPULE NEB IH ×2 (11:25→23:16)
--- NOTE | 2023-04-09 11:28 | RESP.RT ---
SpO2 low 80s on 6 LPM NC. Placed on vapotherm at 40 LPM, 60% 33 degrees celsius
--- NOTE | 2023-04-09 11:29 | PM.IMPN1 ---
Progress Note: A&P Assessment and Plan (1) Acute and chronic respiratory failure with hypoxia: Assessment and Plan: Likely from COPD exacerbation. Added prednisone, one time dose of Solumedrol. resp panel ordered. (2) COPD (chronic obstructive pulmonary disease): Assessment and Plan: COPD with chronic resp with hypoxia. Diminished air entry with wheezing noted today C/w duonebs. ordered solumedrol and prednisone. Qualifiers: COPD type: COPD with acute exacerbation Qualified Code(s): J44.1 - Chronic obstructive pulmonary disease with (acute) exacerbation (3) Gastrointestinal bleed: Assessment and Plan: Received 4 units PRBC. Hb remains stable and no evidence of overt/bleeding noted. C/w PO omeprazole. EGD - no active pathology noted. Qualifiers: GI bleed type/associated pathology: unspecified gastrointestinal hemorrhage type Qualified Code(s): K92.2 - Gastrointestinal hemorrhage, unspecified (4) Acute respiratory failure with hypercapnia: Assessment and Plan: Improved with BIPAP. Exacerbated due to Pneumonia, possible HF, and high dose of Lyrica. on BIPAP qhs. Suspect underlying chronic resp failure with hypercapnia. Will require outpatient testing for it. (5) Acute congestive heart failure: Assessment and Plan: appears euvolemic more or less. Cw PO lasix ECHO normal LVEF. Qualifiers: Heart failure type: unspecified Qualified Code(s): I50.9 - Heart failure, unspecified (6) Bacterial pneumonia: Assessment and Plan: On Rocephin. No resp complaints but worsening hypoxia. Repeat CXR tomorrow. Suspect COPD Exacerbation (7) Iron deficiency anemia due to chronic blood loss: Assessment and Plan: Required 4 units PRBC. (8) Lesion of bladder: Assessment and Plan: incidental finding. Will need outpatient f/u with Urology. (9) Hypothyroid: Assessment and Plan: c/w levothyroxine Qualifiers: Hypothyroidism type: unspecified Qualified Code(s): E03.9 - Hypothyroidism, unspecified (10) HLD (hyperlipidemia): Assessment and Plan: C/w Lipitor Qualifiers: Hyperlipidemia type: mixed hyperlipidemia Qualified Code(s): E78.2 - Mixed hyperlipidemia Internal Medicine - PN: Subj Subjective Interval history: Seen and examined. Her discharge was canceled because of worsening hypoxia. She is still requiring 6 L O2 but appears comfortable and in no distress. Exam Constitutional Vital Signs, click to edit/add: Last Vital Signs Temp 98.3 F 04/09/23 05:58 Pulse 82 04/09/23 10:11 Resp 20 04/09/23 07:21 BP 125/65 04/09/23 05:58 Pulse Ox 92 L 04/09/23 11:27 O2 Del Method Vapotherm 04/09/23 11:27 O2 Flow Rate 40 04/09/23 11:27 FiO2 60 04/09/23 11:27 Documenting provider has reviewed patient's vital signs: yes Common normals: no apparent distress and oriented x3 General appearance: cooperative and frail appearing Respiratory Common normals: normal respiratory effort Effort & inspection: able to speak in complete sentences Auscultation: wheezes and diminished lung sounds Cardio Common normals: regular rate, S1 normal heart sound and S2 normal heart sound Rate: regular rate Heart sounds: S1 normal and S2 normal Neuro Common normals: oriented x3, moves all extremities and no focal motor deficits Internal Medicine - PN: Obj Da Labs Labs: Laboratory Results - last 24 hr 04/08/23 04/09/23 04/09/23 11:20 04:17 07:36 WBC 5.7 RBC 3.33 L Hgb 8.8 L Hct 31.3 L MCV 94.0 MCH 26.4 L MCHC 28.1 L RDW 19.1 H Plt Count 149 L MPV 12.1 Neut % (Auto) 70.8 Lymph % (Auto) 18.0 L [place] % (Auto) 9.9 Eos % (Auto) 0.7 L Baso % (Auto) 0.4 Neut # (Auto) 4.0 Lymph # (Auto) 1.0 L [place] # (Auto) 0.6 Eos # (Auto) 0.0 Baso # (Auto) 0.0 Abs Immat Gran (auto) 0.01 Imm/Tot Granulo (auto) 0.2 Sodium 145 Potassium 3.3 L Chloride 97 L Carbon Dioxide 48.0 H Anion Gap 3.3 BUN 22.0 H Creatinine 0.98 Est GFR ( Amer) >60 Est GFR (Non-Af Amer) 56 L BUN/Creatinine Ratio 22.4 Glucose 133 H Calcium 9.0 Total Bilirubin 0.3 AST 13 L ALT 13 L Alkaline Phosphatase 67 Total Protein 6.5 Albumin 2.8 L Globulin 3.7 Albumin/Globulin Ratio 0.8 SARS-CoV-2 (PCR) Negative SARS-CoV-2 RNA (YAMILET) Not detected POC Glucose 110 H 04/09/23 11:18 WBC RBC Hgb Hct MCV MCH MCHC RDW Plt Count MPV Neut % (Auto) Lymph % (Auto) [place] % (Auto) Eos % (Auto) Baso % (Auto) Neut # (Auto) Lymph # (Auto) [place] # (Auto) Eos # (Auto) Baso # (Auto) Abs Immat Gran (auto) Imm/Tot Granulo (auto) Sodium Potassium Chloride Carbon Dioxide Anion Gap BUN Creatinine Est GFR ( Amer) Est GFR (Non-Af Amer) BUN/Creatinine Ratio Glucose Calcium Total Bilirubin AST ALT Alkaline Phosphatase Total Protein Albumin Globulin Albumin/Globulin Ratio SARS-CoV-2 (PCR) SARS-CoV-2 RNA (YAMILET) POC Glucose 153 H
[2023-04-09] MEDS: METHYLPREDNISOLONE SOD SUCC PF 125 MG/2 ML VIAL IVP (12:03)
--- NOTE | 2023-04-09 13:25 | REH.PTDLY ---
Physical Therapy Daily Note PT Daily Note/Assess Start: 04/06/23 12:28 Freq: Status: Active Protocol: Document 04/09/23 13:19 AMINATA (Rec: 04/09/23 13:24 AMINATA [id number]) Physical Therapy Daily Note/Assessment Time In 12:57 Time Out 13:10 Pain Level 0 Pain Level 0 Subjective Pt on vapotherm at 50%. Agreeable to performing therapy. Therapeutic Exercise Minutes (minutes) 13 Therapeutic Exercise Units 1 Therapeutic Exercise Treatment Instructed in supine exs for improved strength 10x ea AROM- AA at times for larger ROM. Exs included AP, QS, GS, heel slides, AA hip abd, AA SLR. Cues for pt to perform bridge to scoot herself up in the bed , pt able to do with some effort moving an inch at a time. Declines sitting bedside at this time. Total Therapy Minutes 13 Total Physical Therapy Units 1 Daily Note Summary Pt able to perform all supine exs asked of her with cues for proper form. Weakness noted with SLR and hip abd. Declines getting out of bed at this time. Waiting on lunch. Pt will need SNF stay for improved strength upon DC.
[2023-04-09 14:01] LABS: Adenovirus NOT DETECTED (NOT DETECTE); Coronavirus 229E NOT DETECTED (NOT DETECTE); Coronavirus HKU1 NOT DETECTED (NOT DETECTE); Coronavirus NL63 NOT DETECTED (NOT DETECTE); Coronavirus OC43 NOT DETECTED (NOT DETECTE)
[2023-04-09 14:02] LABS: Bordetella parapertussis NOT DETECTED (NOT DETECTE); Human Metapneumovirus NOT DETECTED (NOT DETECTE); Human Rhinovirus/Enterovirus NOT DETECTED (NOT DETECTE); Influenza A NOT DETECTED (NOT DETECTE); Influenza B NOT DETECTED (NOT DETECTE); Mycoplasma pneumoniae NOT DETECTED (NOT DETECTE); Parainfluenza Virus 1 NOT DETECTED (NOT DETECTE); Parainfluenza Virus 2 NOT DETECTED (NOT DETECTE); Parainfluenza Virus 3 NOT DETECTED (NOT DETECTE); Parainfluenza Virus 4 NOT DETECTED (NOT DETECTE); Respiratory Syncytial Virus NOT DETECTED (NOT DETECTE); SARS-CoV-2 NOT DETECTED (NOT DETECTE)
--- NOTE | 2023-04-09 16:15 | XR_ITS ---
[address] [address] Patient Name: VISHAL ROQUE MRN: [id number] date: 1950 Sex: F Assigned Patient Location: MS Current Patient Location: MS Accession/Order Number: [id number] Exam Date: 04/09/2023 16:40 Report Date: 04/09/2023 17:05 At the request of: SHAIKH NATHAN Procedure: XR chest 1V Exam: Radiographs: XR chest 1V Reason for exam: Dyspnea Comparison: Chest x-ray dated 04/09/2023 XR/XR chest 1V IMPRESSION: Atelectasis and/or infiltrate in the lower lungs bilaterally. Small bilateral pleural effusions. Pulmonary venous hypertension. Remainder the chest is unremarkable. Electronically authenticated by: TREVON CASTELAN Date: 04/09/2023 17:05
[2023-04-09 16:19] LABS: Glucometer 135 mg/dL (74-106)
[2023-04-09 16:46] LABS: Allen Test POSITIVE (POSITIVE); Base Excess ABG 28.4 mmol/L (-2.0-2.0); HCO3 ABG 52.3 mmol/L (22.0-26.0); Oxygen Saturation ABG 94.4 %; PO2 ABG 68.6 mmHg (80.0-100.0); pH ABG 7.454 (7.350-7.450)
[2023-04-09 16:47] LABS: Fractionated Inspired Oxygen 70 %; Liters per Minute 40; O2 Mode VAPOTHERM; Puncture Site RR
[2023-04-09 16:48] LABS: ABG PCO2 74.7 mmHg (35.0-45.0)
[2023-04-09] MEDS: PREDNISONE 20 MG TABLET 40 MG PO (17:34)
--- NOTE | 2023-04-09 19:53 | RESP.RT ---
decreased Fi02 down to 60%
[2023-04-09] MEDS: ATORVASTATIN CALCIUM 20 MG TABLET PO (21:18)
--- NOTE | 2023-04-09 23:16 | RESP.RT ---
Sp02 96% on 40L 60% Vapotherm, decreased Fi02 down to 50%
[2023-04-10] VITALS (29 sets, daily range): BP systolic 100–154; BP diastolic 54–68; PULSE 66–94; RESP 14–22; TEMP 36.6–37; O2SAT 85–98; BMI 24.0
[2023-04-10] MEDS: IPRATROPIUM/ALBUTEROL SULFATE 3 ML AMPUL.NEB IH ×6 (03:55→23:20)
--- NOTE | 2023-04-10 05:00 | XR_ITS ---
The [address] [address] Patient Name: VISHAL ROQUE MRN: [id number] date: 1950 Sex: F Assigned Patient Location: MS Current Patient Location: Accession/Order Number: [id number] Exam Date: 04/10/2023 04:50 Report Date: 04/10/2023 06:56 At the request of: SHAIKH NATHAN Procedure: XR chest 1V EXAM: XR chest 1V HISTORY: Shortness of breath. COMPARISON: Portable chest radiograph dated 04/09/2023. TECHNIQUE: AP erect portable chest radiograph performed. FINDINGS: Stable mild enlargement of the cardiac silhouette and stable moderate atheromatous calcification at the aortic arch. There is worsened opacification of the left lower chest which may be secondary to pleural fluid and atelectasis. Underlying infiltrate however cannot be excluded. There is also persistent however interval improved mild patchy atelectasis and/or infiltrate at the right lung base. There is no pulmonary vascular congestion. There is no pneumothorax. There is no acute osseous abnormality. The bony structures are osteopenic. XR/XR chest 1V IMPRESSION: There is worsened opacification of the left lower chest which may be secondary to pleural fluid and atelectasis. Underlying infiltrate however cannot be excluded. There is also persistent however interval improved mild patchy atelectasis and/or infiltrate at the right lung base. There is no pulmonary vascular congestion. Electronically authenticated by: MELONY GAONA Date: 04/10/2023 06:56
[2023-04-10 05:15] LABS: Basophils Percent Auto 0.2 % (0.2-2.0); Hematocrit 31.3 % (36.0-48.0); Hemoglobin 8.9 g/dL (12.0-16.0); Immature Granulocytes Abs Auto 0.02 10^3/uL (0.00-0.03); Immature Granulocytes Pct Auto 0.3 % (0.0-0.5); Lymphocytes Absolute Auto 0.3 10^3/uL (1.2-3.8); Lymphocytes Percent Auto 3.9 % (20.5-60.0); Mean Corpuscular HGB Conc 28.4 g/dL (29.9-35.2); Mean Corpuscular Hemoglobin 26.5 pg (26.7-34.0); Mean Corpuscular Volume 93.2 fL (81.0-99.0); Mean Platelet Volume 12.6 fL (9.5-13.5); Monocytes Absolute Auto 0.2 10^3/uL (0.3-0.8); Monocytes Percent Auto 2.8 % (1.7-12.0); Neutrophils Percent Auto 92.8 % (43.0-75.0); Platelet Count 155 10^3/uL (150-450); Red Blood Count 3.36 10^6/uL (4.20-5.40); Red Cell Distribution Width 19.4 % (11.0-15.0); White Blood Count 6.4 10^3/uL (4.0-11.0)
[2023-04-10 05:36] LABS: Alanine Aminotransferase 10 U/L (14-59); Albumin Globulin Ratio 0.7; Albumin Level 2.8 g/dL (3.4-5.0); Alkaline Phosphatase 64 U/L (46-116); Anion Gap 2.5; Aspartate Amino Transferase 13 U/L (15-37); BUN Creatinine Ratio 27.5; Bilirubin Total 0.3 mg/dL (0.2-1.0); Calcium 8.8 mg/dL (8.5-10.1); Carbon Dioxide 48.1 mmol/L (21.0-32.0); Chloride 98 mmol/L (98-107); Estimated GFR (African America >60 (>=60); Estimated GFR (Non-African Ame 53 (>=60); Glucose 148 mg/dL (74-106); Potassium 3.6 mmol/L (3.5-5.1); Sodium 145 mmol/L (136-145); Total Protein 6.8 g/dL (6.4-8.2)
[2023-04-10] MEDS: LEVOTHYROXINE SODIUM 125 MCG TABLET PO (06:32)
[2023-04-10 07:21] LABS: Glucometer 180 mg/dL (74-106)
--- NOTE | 2023-04-10 07:22 | RESP.RT ---
decreased fio2 to 40%
--- NOTE | 2023-04-10 07:27 | CT_ITS ---
[address] [address] Patient Name: VISHAL ROQUE MRN: [id number] date: 1950 Sex: F Assigned Patient Location: MS Current Patient Location: MS Accession/Order Number: [id number] Exam Date: 04/10/2023 07:55 Report Date: 04/10/2023 08:40 At the request of: SHAIKH NATHAN Procedure: CT angio chest CT angio chest, 04/10/2023 7:55 AM EST INDICATION: Chronic sob COMPARISON: Radiograph of the chest 04/09/2023, LD CT scan of the chest 05/16/2016, CT of the abdomen and pelvis 04/04/2023 TECHNIQUE: Axial images of the chest were obtained with administration of IV contrast. Multiplanar reformatted, MIP and 3D images were generated and reviewed as needed. Dose reduction techniques were achieved by using automated exposure control and/or adjustment of mA and/or kV according to patient size and/or use of iterative reconstruction technique. FINDINGS: Cardiomegaly. Small pericardial effusion. No aortic aneurysm or dissection. Left vertebral artery originates off the aorta, a normal variant. No filling defect within the pulmonary arteries. No mediastinal, hilar or axillary lymphadenopathy. Debris within the trachea. Diffuse centrilobular emphysematous change and bronchial wall thickening. Small bilateral pleural effusions with overlying consolidation. Subsegmental atelectasis within the right middle and lower lobes. Cholecystectomy. Diffuse fatty infiltration within the liver. Left cortical renal cyst. No acute fracture. CT/CT angio chest IMPRESSION: 1. No pulmonary embolism. 2. Cardiomegaly with small pericardial effusion. 3. Small bilateral pleural effusions with bilateral lower lobe consolidation. Underlying infection cannot be excluded. Electronically authenticated by: PATRICE TAO Date: 04/10/2023 08:40
[2023-04-10] MEDS: FUROSEMIDE 40 MG TABLET PO (10:11)
[2023-04-10] MEDS: PREDNISONE 20 MG TABLET 40 MG PO (10:11)
[2023-04-10] MEDS: PREGABALIN 100 MG CAPSULE PO ×2 (10:11→20:24)
[2023-04-10] MEDS: QUETIAPINE FUMARATE 100 MG TABLET PO ×2 (10:11→20:24)
[2023-04-10] MEDS: OMEPRAZOLE 40 MG CAPSULE.DR PO ×2 (10:12→20:24)
[2023-04-10] MEDS: CEFTRIAXONE 1,000 MG in 0.9 % SODIUM CHLORIDE 50 ML 100 MG IV (10:12)
[2023-04-10] MEDS: 0.9 % SODIUM CHLORIDE 250 ML 10 ML IV (10:12)
[2023-04-10] MEDS: BUDESONIDE 0.5 MG/2 ML AMPULE NEB IH ×2 (11:05→23:20)
--- NOTE | 2023-04-10 11:11 | P.IMPN_ITS ---
Progress Note: A&P Assessment and Plan (1) Acute and chronic respiratory failure with hypoxia: Assessment and Plan: Likely from COPD exacerbation. But no noticeable improvement in hypoxia. Negative resp panel. CTA - negative for PE. C/w duonebs, prednisone. Pulm consulted. (2) COPD (chronic obstructive pulmonary disease): Assessment and Plan: COPD with chronic resp with hypoxia. Diminished air entry with wheezing , impr chayo today. C/w duonebs. prednisone. Qualifiers: COPD type: COPD with acute exacerbation Qualified Code(s): J44.1 - Chronic obstructive pulmonary disease with (acute) exacerbation (3) Gastrointestinal bleed: Assessment and Plan: Received 4 units PRBC. Hb remains stable and no evidence of overt/bleeding noted. C/w PO omeprazole. EGD - no active pathology noted. Qualifiers: GI bleed type/associated pathology: unspecified gastrointestinal hemorrhage type Qualified Code(s): K92.2 - Gastrointestinal hemorrhage, unspecified (4) Acute respiratory failure with hypercapnia: Assessment and Plan: Improved with BIPAP. Exacerbated due to Pneumonia, possible HF, and high dose of Lyrica. Suspect underlying chronic resp failure with hypercapnia. Will require outpatient testing for it. (5) Acute congestive heart failure: Assessment and Plan: appears euvolemic more or less. Cw PO lasix ECHO normal LVEF. Qualifiers: Heart failure type: unspecified Qualified Code(s): I50.9 - Heart failure, unspecified (6) Bacterial pneumonia: Assessment and Plan: On Rocephin. No resp complaints but worsening hypoxia. CTA shows b/l pleural effusion, possible b/l consolidation. (7) Iron deficiency anemia due to chronic blood loss: Assessment and Plan: Required 4 units PRBC. (8) Lesion of bladder: Assessment and Plan: incidental finding. Will need outpatient f/u with Urology. (9) Hypothyroid: Assessment and Plan: c/w levothyroxine Qualifiers: Hypothyroidism type: unspecified Qualified Code(s): E03.9 - Hypothyroidism, unspecified (10) HLD (hyperlipidemia): Assessment and Plan: C/w Lipitor Qualifiers: Hyperlipidemia type: mixed hyperlipidemia Qualified Code(s): E78.2 - Mixed hyperlipidemia Plan Wean off O2 as tolerated, Pulm consult pending Internal Medicine - PN: Subj Subjective Interval history: Seen and examined. No events overnight but still requiring 50% FIO2 on high flow. Exam Constitutional Vital Signs, click to edit/add: Last Vital Signs Temp 98.1 F 04/10/23 06:00 Pulse 94 H 04/10/23 10:00 Resp 22 04/10/23 06:00 BP 123/54 04/10/23 06:33 Pulse Ox 93 L 04/10/23 11:07 O2 Del Method Vapotherm 04/10/23 11:07 O2 Flow Rate 40 04/10/23 10:13 FiO2 50 04/10/23 11:07 Documenting provider has reviewed patient's vital signs: yes Common normals: no apparent distress and oriented x3 General appearance: cooperative and frail appearing Respiratory Common normals: normal respiratory effort Effort & inspection: able to speak in complete sentences Auscultation: rhonchi and diminished lung sounds Cardio Common normals: regular rate, S1 normal heart sound and S2 normal heart sound Rate: regular rate Heart sounds: S1 normal and S2 normal Neuro Common normals: oriented x3, moves all extremities and no focal motor deficits Internal Medicine - PN: Obj Da Labs Labs: Laboratory Results - last 24 hr 04/09/23 04/09/23 04/09/23 11:18 13:57 16:18 WBC RBC Hgb Hct MCV MCH MCHC RDW Plt Count MPV Neut % (Auto) Lymph % (Auto) [place] % (Auto) Eos % (Auto) Baso % (Auto) Neut # (Auto) Lymph # (Auto) [place] # (Auto) Eos # (Auto) Baso # (Auto) Abs Immat Gran (auto) Imm/Tot Granulo (auto) Puncture Site ABG pH ABG pCO2 ABG pO2 ABG HCO3 ABG O2 Saturation ABG Base Excess [place] Test O2 Liters/Min FiO2 Sodium Potassium Chloride Carbon Dioxide Anion Gap BUN Creatinine Est GFR ( Amer) Est GFR (Non-Af Amer) BUN/Creatinine Ratio Glucose Calcium Total Bilirubin AST ALT Alkaline Phosphatase Total Protein Albumin Globulin Albumin/Globulin Ratio Adenovirus (PCR) Not detected C. pneumoniae DNA (PCR) Not detected Coronavirus Type OC43 Not detected Coronavirus Type HKU1 Not detected Coronavirus Type 229E Not detected Coronavirus Type NL63 Not detected Human Metapneumovir PCR Not detected M. pneumoniae (PCR) Not detected Parainfluenza PCR Not detected Parainfluenza 2 (PCR) Not detected Parainfluenza 3 (PCR) Not detected Parainfluenza 4 (PCR) Not detected RSV (RT-PCR) Not detected Entero/Rhino (PCR) Not detected SARS-CoV-2 (PCR) Not detected Bordetella pertussis (PCR) Not detected B parapertussis DNA PCR Not detected Influenza Type A (PCR) Not detected Influenza Type B (PCR) Not detected POC Glucose 153 H 135 H 04/09/23 04/10/23 04/10/23 16:40 04:40 07:21 WBC 6.4 RBC 3.36 L Hgb 8.9 L Hct 31.3 L MCV 93.2 MCH 26.5 L MCHC 28.4 L RDW 19.4 H Plt Count 155 MPV 12.6 Neut % (Auto) 92.8 H Lymph % (Auto) 3.9 L [place] % (Auto) 2.8 Eos % (Auto) 0.0 L Baso % (Auto) 0.2 Neut # (Auto) 6.0 Lymph # (Auto) 0.3 L [place] # (Auto) 0.2 L Eos # (Auto) 0.0 Baso # (Auto) 0.0 Abs Immat Gran (auto) 0.02 Imm/Tot Granulo (auto) 0.3 Puncture Site Rr ABG pH 7.454 H ABG pCO2 74.7 H* ABG pO2 68.6 L ABG HCO3 52.3 H ABG O2 Saturation 94.4 ABG Base Excess 28.4 H [place] Test Positive O2 Liters/Min 40 FiO2 70 Sodium 145 Potassium 3.6 Chloride 98 Carbon Dioxide 48.1 H Anion Gap 2.5 BUN 28.0 H Creatinine 1.02 Est GFR ( Amer) >60 Est GFR (Non-Af Amer) 53 L BUN/Creatinine Ratio 27.5 Glucose 148 H Calcium 8.8 Total Bilirubin 0.3 AST 13 L ALT 10 L Alkaline Phosphatase 64 Total Protein 6.8 Albumin 2.8 L Globulin 4.0 Albumin/Globulin Ratio 0.7 Adenovirus (PCR) C. pneumoniae DNA (PCR) Coronavirus Type OC43 Coronavirus Type HKU1 Coronavirus Type 229E Coronavirus Type NL63 Human Metapneumovir PCR M. pneumoniae (PCR) Parainfluenza PCR Parainfluenza 2 (PCR) Parainfluenza 3 (PCR) Parainfluenza 4 (PCR) RSV (RT-PCR) Entero/Rhino (PCR) SARS-CoV-2 (PCR) Bordetella pertussis (PCR) B parapertussis DNA PCR Influenza Type A (PCR) Influenza Type B (PCR) POC Glucose 180 H
--- NOTE | 2023-04-10 11:22 | PT.DAILY ---
Physical Therapy Daily Note PT Daily Note/Assess Start: 04/06/23 12:28 Freq: Status: Active Protocol: Document 04/10/23 11:14 COLINHANSELCALEB (Rec: 04/10/23 11:22 COLINSTACIE [id number]) Physical Therapy Daily Note/Assessment Time In/Time Out Time In 10:05 Time Out 10:18 Pain In Pain N/A Pain Out Pain N/A Subjective Subjective Pt supine upon arrival. Vapotherm 40% today. Spo2 92% prior to session. Agrees to get into bed side chair. Therapeutic Exercise Time Therapeutic Exercise Minutes (minutes) 3 Therapeutic Exercise Units 0 Therapeutic Exercise Treatment Therapeutic Exercise Treatment Seated bilat LE strengthening ex complete while sitting EOB unsupported 10x ea. Therapeutic Activity Time Therapeutic Activity Minutes (minutes) 6 Therapeutic Activity Units 1 Therapeutic Activity Treatment Bed Mobility Ability Minimum Assist Chair Transfer Ability Standby Assistance Therapeutic Activity Comments Pt performs supine>sit with Kris to advance upper body to sit EOB. Pt sits EOB 3 min while completing LE strengthening ex - no LOB. Min fatigue - SPO2 drops to 88% with this. Pt sit>stand SBA and amb 5' to RW to BS chair SBA and assist for Vapotherm lines. Pt remains in BS chair upon completion - Spo2 drops to 85% with this and nursing is notified of desaturation with this activity. Total Physical Therapy Time Total Therapy Minutes 9 Total Physical Therapy Units 1 Summary Daily Note Summary Fair tolerance with session as O2 levels do drop with any activity. Steady with gait and transfers using RW.
[2023-04-10 11:27] LABS: Glucometer 137 mg/dL (74-106)
--- NOTE | 2023-04-10 12:07 | CM.NOTE ---
Rounds made with Dr. Adame, no discharge today. 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
[2023-04-10 14:15] LABS: Base Excess ABG 24.5 mmol/L (-2.0-2.0); HCO3 ABG 48.7 mmol/L (22.0-26.0); PO2 ABG 69.2 mmHg (80.0-100.0); pH ABG 7.443 (7.350-7.450)
[2023-04-10 14:16] LABS: Allen Test POSITIVE (POSITIVE); Fractionated Inspired Oxygen 50 %; Liters per Minute 30; O2 Mode VAPOTHERM; Oxygen Saturation ABG 94.5 %
[2023-04-10 14:17] LABS: Puncture Site L RADIAL
[2023-04-10 14:18] LABS: ABG PCO2 71.3 mmHg (35.0-45.0)
--- NOTE | 2023-04-10 15:44 | CM.NOTE ---
Updated Day from [place] and faxed clinical.
[2023-04-10 16:16] LABS: Glucometer 232 mg/dL (74-106)
--- NOTE | 2023-04-10 16:42 | PM.PLCN ---
History of Present Illness History of Present Illness Consult date: 04/10/23 Requesting physician: Shaikh Deep Reason for consult: hypoxemia Chief complaint: SOB, abdominal pain Narrative: 72yo female presented to [facility] ER with abdominal pain and weakness. Found to have a very low Hb of 3.6g/dL. She received 4 units of PRBC. Stool was heme positive, questioned GI bleed. EGD performed revealed no active bleeding. She was to be discharged later that day (04/06/2023) but patient was noted to be very somnolent. ABG drawn revealed an smccq-yu-rfkhckb hypercapnia with pH 7.290 and pH 97.9. She was placed on BiPAP but then transitioned to Vapotherm. She is on a baseline flow of 4L/min, but O2 requirements increased and remained on Vapotherm. Today, she is on Vapotherm FiO2 50% - lowering it to 45% decreased her SpO2 to 85%. ABG was rechecked today (04/10/2023) which showed pH 7.443 and pCO2 71.3. Pulmonary was consulted for ongoing respiratory issues. Patient is A&O for me today. She previously was established with a time cycle operator, but can't remember her name - ? [facility]? She said her former PCP, Dr. Sanders, was in the process of transferring her to a new time cycle operator until he moved his practice up to [place]. History of tobacco abuse, quit years ago according to patient. On Trelegy 100, but does not help a lot. As above, baseline O2 is 4L/min but she likes to maintain her SpO2 93-95%. States she was never told she is a CO2 retainer/chronic hypercapnia. CT abdomen/pelvis on 04/04/2023 noted small bilateral effusions; chest CTA today noted slight increase in effusion with LLL > RLL compressive atelectasis vs. infiltrate. The patient states she does not feel ill - denies any fevers, chills, or sweats. Diffuse centrilobular emphysema was noted. I have no prior pulmonary records for reference. Review of Systems ROS Status of ROS 10 or more systems reviewed and unremarkable except as noted in history and below Constitutional Reports: fatigue; Denies: fever, chills or night sweats Cardiovascular Denies: chest pain Respiratory Reports: shortness of breath, cough and wheezing Gastrointestinal Reports: abdominal pain (improved); Denies: nausea Integumentary/Breast Denies: rash Psychiatric Denies: anxiety [facility] Medical History (Updated 04/09/23 @ 11:36 by Shaikh Deep MD) HLD (hyperlipidemia) ?E78.5 - Hyperlipidemia, unspecified (ICD-10) Hypothyroid ?E03.9 - Hypothyroidism, unspecified (ICD-10) Chronic hypoxic respiratory failure ?J96.11 - Chronic respiratory failure with hypoxia (ICD-10) COPD (chronic obstructive pulmonary disease) ?J44.9 - Chronic obstructive pulmonary disease, unspecified (ICD-10) Social History Smoking status: Former smoker Meds Home Medications and Allergies Home Medications Medication Instructions Recorded Confirmed Type albuterol sulfate 90 mcg/actuation 2 puff inhalation Q4H PRN 04/04/23 04/04/23 History aerosol inhaler shortness of breath or wheezing atorvastatin 20 mg tablet 20 mg PO DAILY 04/04/23 04/04/23 History budesonide 160 mcg-glycopyr 9 2 inh inhalation BID 04/04/23 04/04/23 History mcg-formot 4.8 mcg/actuation HFA inhaler (Breztri Aerosphere) levothyroxine 125 mcg tablet 125 mcg PO DAILY 04/04/23 04/04/23 History quetiapine 100 mg tablet 100 mg PO BID 04/04/23 History cefuroxime axetil 500 mg tablet 500 mg PO BID 5 days #10 tabs 04/08/23 Rx ferrous sulfate 325 mg (65 mg 325 mg PO DAILY #30 tabs 04/08/23 Rx iron) tablet,delayed release furosemide 20 mg tablet (Lasix) 20 mg PO DAILY #30 tabs 04/08/23 Rx omeprazole 40 mg capsule,delayed 40 mg PO DAILY #30 caps 04/08/23 Rx release pregabalin 150 mg capsule 100 mg (0.6667 x 150 mg) PO Q12H 04/08/23 04/04/23 Rx #0 caps Allergies Allergy/AdvReac Type Severity Reaction Status Date / Time No Known Drug Allergies Allergy Verified 04/04/23 16:06 Exam Constitutional Vital Signs, click to edit/add: Last Vital Signs Temp 98.6 F 04/10/23 14:30 Pulse 85 04/10/23 15:52 Resp 22 04/10/23 14:30 BP 154/68 H 04/10/23 14:30 Pulse Ox 93 L 04/10/23 16:01 O2 Del Method Vapotherm 04/10/23 16:01 O2 Flow Rate 40 04/10/23 14:30 FiO2 50 04/10/23 16:01 Documenting provider has reviewed patient's vital signs: yes Common normals: no apparent distress General appearance: cooperative and comfortable HENMT Other: Vapotherm Cannula. Poor dentition. Chest Common normals: inspection of chest normal Chest: symmetrical chest wall rise Respiratory Other: Diminished breath sounds bilaterally. Crackles present in the bases L > R. No expiratory wheezes currently. Cardio Rate: regular rate Rhythm: regular rhythm Extremity General: no edema Neuro Sensorium/orientation: awake and alert Psych Attitude: calm Speech: normal speech Results Laboratory Findings ABG, PT/INR, D-dimer: ABG ABG pH 7.443 (7.350-7.450) 04/10/23 14:04 ABG pCO2 71.3 mmHg (35.0-45.0) H* 04/10/23 14:04 ABG pO2 69.2 mmHg (80.0-100.0) L 04/10/23 14:04 ABG O2 Saturation 94.5 % 04/10/23 14:04 Abnormal lab findings: Abnormal Labs 04/04/23 04/04/23 04/04/23 11:49 12:35 12:54 RBC 1.74 L Hgb 3.6 L* Hct 15.5 L* MCH 20.7 L MCHC 23.2 L RDW 22.5 H Plt Count Neut % (Auto) Lymph % (Auto) Eos % (Auto) 0.4 L Lymph # (Auto) [place] # (Auto) Abs Immat Gran (auto) Imm/Tot Granulo (auto) ABG pH ABG pCO2 ABG pO2 ABG HCO3 ABG Base Excess VBG pCO2 68.0 H Sodium Potassium Chloride Carbon Dioxide 38.2 H BUN Est GFR (Non-Af Amer) 59 L Glucose 179 H Calcium Total Bilirubin AST ALT <6 L Ammonia Total Protein Albumin Stool Occult Blood Positive A POC Glucose Crossmatch See Detail 04/04/23 04/05/23 04/05/23 17:25 00:26 04:12 RBC 3.48 L Hgb 6.9 L* D 9.4 L 9.2 L Hct 23.4 L* 30.6 L MCH 26.4 L MCHC RDW 16.4 H Plt Count Neut % (Auto) Lymph % (Auto) Eos % (Auto) 0.4 L Lymph # (Auto) [place] # (Auto) Abs Immat Gran (auto) 0.06 H Imm/Tot Granulo (auto) 0.9 H ABG pH ABG pCO2 ABG pO2 ABG HCO3 ABG Base Excess VBG pCO2 Sodium Potassium Chloride Carbon Dioxide 40.3 H BUN Est GFR (Non-Af Amer) Glucose Calcium 8.4 L Total Bilirubin 1.1 H AST 10 L ALT <6 L Ammonia Total Protein 6.2 L Albumin 3.0 L Stool Occult Blood POC Glucose Crossmatch 04/05/23 04/06/23 04/06/23 16:13 04:51 14:15 RBC 3.94 L 3.73 L Hgb 10.8 L 9.9 L Hct 34.2 L 33.9 L MCH 26.5 L MCHC 29.2 L RDW 16.8 H 17.5 H Plt Count Neut % (Auto) Lymph % (Auto) Eos % (Auto) 0.3 L Lymph # (Auto) [place] # (Auto) Abs Immat Gran (auto) 0.04 H Imm/Tot Granulo (auto) 0.6 H ABG pH 7.290 L* ABG pCO2 97.9 H* ABG pO2 ABG HCO3 47.0 H ABG Base Excess 20.5 H VBG pCO2 Sodium 146 H Potassium Chloride Carbon Dioxide 44.8 H BUN Est GFR (Non-Af Amer) Glucose Calcium 8.3 L Total Bilirubin AST 13 L ALT <6 L Ammonia Total Protein Albumin 3.1 L Stool Occult Blood POC Glucose Crossmatch 04/06/23 04/06/23 04/07/23 15:35 15:55 05:25 RBC 3.56 L Hgb 9.6 L 9.4 L Hct 33.3 L 32.9 L MCH 26.4 L MCHC 28.6 L RDW 18.0 H Plt Count Neut % (Auto) Lymph % (Auto) 15.1 L Eos % (Auto) 0.3 L Lymph # (Auto) 0.9 L [place] # (Auto) Abs Immat Gran (auto) Imm/Tot Granulo (auto) ABG pH 7.343 L ABG pCO2 85.1 H* ABG pO2 49.8 L ABG HCO3 46.2 H ABG Base Excess 20.4 H VBG pCO2 Sodium 146 H Potassium Chloride Carbon Dioxide 46.9 H BUN Est GFR (Non-Af Amer) 53 L Glucose Calcium Total Bilirubin AST 8 L ALT 11 L Ammonia <10 L Total Protein 6.3 L Albumin 2.9 L Stool Occult Blood POC Glucose Crossmatch 04/08/23 04/09/23 04/09/23 04:30 04:17 07:36 RBC 3.37 L 3.33 L Hgb 8.9 L 8.8 L Hct 31.0 L 31.3 L MCH 26.4 L 26.4 L MCHC 28.7 L 28.1 L RDW 18.4 H 19.1 H Plt Count 149 L Neut % (Auto) Lymph % (Auto) 16.7 L 18.0 L Eos % (Auto) 0.3 L 0.7 L Lymph # (Auto) 1.0 L 1.0 L [place] # (Auto) Abs Immat Gran (auto) Imm/Tot Granulo (auto) ABG pH ABG pCO2 ABG pO2 ABG HCO3 ABG Base Excess VBG pCO2 Sodium Potassium 3.3 L Chloride 97 L 97 L Carbon Dioxide 48.7 H 48.0 H BUN 22.0 H Est GFR (Non-Af Amer) 54 L 56 L Glucose 133 H Calcium Total Bilirubin AST 13 L ALT 10 L 13 L Ammonia Total Protein Albumin 2.8 L 2.8 L Stool Occult Blood POC Glucose 110 H Crossmatch 04/09/23 04/09/23 04/09/23 11:18 16:18 16:40 RBC Hgb Hct MCH MCHC RDW Plt Count Neut % (Auto) Lymph % (Auto) Eos % (Auto) Lymph # (Auto) [place] # (Auto) Abs Immat Gran (auto) Imm/Tot Granulo (auto) ABG pH 7.454 H ABG pCO2 74.7 H* ABG pO2 68.6 L ABG HCO3 52.3 H ABG Base Excess 28.4 H VBG pCO2 Sodium Potassium Chloride Carbon Dioxide BUN Est GFR (Non-Af Amer) Glucose Calcium Total Bilirubin AST ALT Ammonia Total Protein Albumin Stool Occult Blood POC Glucose 153 H 135 H Crossmatch 04/10/23 04/10/23 04/10/23 04:40 07:21 11:26 RBC 3.36 L Hgb 8.9 L Hct 31.3 L MCH 26.5 L MCHC 28.4 L RDW 19.4 H Plt Count Neut % (Auto) 92.8 H Lymph % (Auto) 3.9 L Eos % (Auto) 0.0 L Lymph # (Auto) 0.3 L [place] # (Auto) 0.2 L Abs Immat Gran (auto) Imm/Tot Granulo (auto) ABG pH ABG pCO2 ABG pO2 ABG HCO3 ABG Base Excess VBG pCO2 Sodium Potassium Chloride Carbon Dioxide 48.1 H BUN 28.0 H Est GFR (Non-Af Amer) 53 L Glucose 148 H Calcium Total Bilirubin AST 13 L ALT 10 L Ammonia Total Protein Albumin 2.8 L Stool Occult Blood POC Glucose 180 H 137 H Crossmatch 04/10/23 04/10/23 14:04 16:15 RBC Hgb Hct MCH MCHC RDW Plt Count Neut % (Auto) Lymph % (Auto) Eos % (Auto) Lymph # (Auto) [place] # (Auto) Abs Immat Gran (auto) Imm/Tot Granulo (auto) ABG pH ABG pCO2 71.3 H* ABG pO2 69.2 L ABG HCO3 48.7 H ABG Base Excess 24.5 H VBG pCO2 Sodium Potassium Chloride Carbon Dioxide BUN Est GFR (Non-Af Amer) Glucose Calcium Total Bilirubin AST ALT Ammonia Total Protein Albumin Stool Occult Blood POC Glucose 232 H Crossmatch Diagnostic Findings CT scan - chest: report reviewed and image reviewed Assessment and Plan Assessment and Plan (1) Acute respiratory failure with hypercapnia: Assessment and Plan: 1. Ammmh-af-ofowpii hypercapnic respiratory failure. Chronicity evidenced by HCO3- on admission @ 38.2 - secondary to COPD. No history of INNA; BMI only 24, so no OHS. Increased CO2 retention initially could be explained by anemia, as CO2 transport is dependent on hemoglobin, ? post-procedural hypoventilation s/p EGD? Citrate from repeated PRBC transfusions can be metabolized into CO2, worsening hypercapnia, but unsure if only 4 units would produce such an amount as seen in this patient. pCO2 & pH have slowly improved over the past 4 days. Vapotherm is helping with CO2 washout currently. Previously on BiPAP but even on that, her pCO2 did not correct as rapidly suggesting BiPAP failure and need for NIV outpatient. She voiced she does not like wearing the BiPAP, and as NIV is very similar, this places the patient in a predicament and increases the risk for recurrent hypercapnic respiratory failure in the future. For now, continue with Vapotherm (more for O2 needs currently) and when acceptable to wean to normal nasal cannula, titrate FiO2 to maintain SpO2 88-92% to prevent hyperoxic-induced hypercapnia. 2. Ttgit-jz-uvipzyk hypoxic respiratory failure. See above for CO2 component. SpO2 was 100% on admission because her Hb was so low - it took little O2 to fully saturate a Hb of 3.6g/dL. As anemia corrected, the O2 demands increased for various reasons. Effusions are slightly increased in size, now with either infiltrates or compressive atelectasis. Ordering IPPB, pulmonary toilet to try to get the lower lobes re-expanded. She is already on antibiotics - labs do not suggest sepsis at this time. 3. Centrilobular emphysema. Secondary to tobacco abuse. Patient is on Trelegy 100 outpatient along with O2 @ 4L/min. She needs to establish with a new time cycle operator outpatient. 4. Bibasilar infiltrates (abnormal chest CT) of unclear etiology. As above, question compressive atelectasis vs. infiltrates. Pulmonary toilet ordered. 5. Bilateral pleural effusions. Present on admission. Etiology unclear - CHF/strain secondary to anemia? 6. Anemia secondary to blood loss. Will need evaluation outpatient - colonoscopy? 7. History of tobacco abuse.
[2023-04-10] MEDS: SODIUM CHLORIDE 0.9% INHALATION 3 ML NEB 6 ML IH ×2 (19:46→23:20)
--- NOTE | 2023-04-10 19:46 | RESP.RT ---
decreased Fi02 down to 45%
[2023-04-10] MEDS: ATORVASTATIN CALCIUM 20 MG TABLET PO (20:24)
[2023-04-10 20:27] LABS: Glucometer 171 mg/dL (74-106)
--- NOTE | 2023-04-10 21:09 | RESP.RT ---
Increased Fi02 back up to 50% and Sp02 increased to 92%
[2023-04-11] VITALS (24 sets, daily range): BP systolic 115–142; BP diastolic 52–63; PULSE 54–87; RESP 12–22; TEMP 36.4–37; O2SAT 79–99
[2023-04-11] MEDS: IPRATROPIUM/ALBUTEROL SULFATE 3 ML AMPUL.NEB IH ×6 (03:58→23:43)
--- NOTE | 2023-04-11 03:58 | RESP.RT ---
decreased Fi02 down to 45%
[2023-04-11 04:55] LABS: Basophils Percent Auto 0.1 % (0.2-2.0); Hemoglobin 8.2 g/dL (12.0-16.0); Immature Granulocytes Abs Auto 0.05 10^3/uL (0.00-0.03); Immature Granulocytes Pct Auto 0.5 % (0.0-0.5); Lymphocytes Absolute Auto 0.7 10^3/uL (1.2-3.8); Lymphocytes Percent Auto 6.2 % (20.5-60.0); Mean Corpuscular HGB Conc 28.3 g/dL (29.9-35.2); Mean Corpuscular Hemoglobin 26.5 pg (26.7-34.0); Mean Corpuscular Volume 93.9 fL (81.0-99.0); Mean Platelet Volume 11.6 fL (9.5-13.5); Monocytes Absolute Auto 0.5 10^3/uL (0.3-0.8); Monocytes Percent Auto 4.3 % (1.7-12.0); Neutrophils Absolute Auto 9.6 10^3/uL (1.4-6.5); Neutrophils Percent Auto 88.9 % (43.0-75.0); Platelet Count 147 10^3/uL (150-450); Red Blood Count 3.09 10^6/uL (4.20-5.40); Red Cell Distribution Width 19.9 % (11.0-15.0); White Blood Count 10.8 10^3/uL (4.0-11.0)
[2023-04-11 05:12] LABS: Alanine Aminotransferase 12 U/L (14-59); Albumin Globulin Ratio 0.8; Albumin Level 2.8 g/dL (3.4-5.0); Alkaline Phosphatase 56 U/L (46-116); Anion Gap 4.1; Aspartate Amino Transferase 8 U/L (15-37); BUN Creatinine Ratio 39.6; Bilirubin Total 0.2 mg/dL (0.2-1.0); Carbon Dioxide 45.2 mmol/L (21.0-32.0); Chloride 98 mmol/L (98-107); Estimated GFR (African America >60 (>=60); Estimated GFR (Non-African Ame >60 (>=60); Globulin 3.5 g/dL; Glucose 114 mg/dL (74-106); Potassium 4.3 mmol/L (3.5-5.1); Sodium 143 mmol/L (136-145); Total Protein 6.3 g/dL (6.4-8.2)
[2023-04-11] MEDS: LEVOTHYROXINE SODIUM 125 MCG TABLET PO (05:58)
[2023-04-11] MEDS: FUROSEMIDE 40 MG TABLET PO (08:25)
[2023-04-11] MEDS: QUETIAPINE FUMARATE 100 MG TABLET PO ×2 (08:25→20:21)
[2023-04-11] MEDS: PREGABALIN 100 MG CAPSULE PO ×2 (08:25→20:21)
[2023-04-11] MEDS: OMEPRAZOLE 40 MG CAPSULE.DR PO ×2 (08:26→20:21)
[2023-04-11] MEDS: CEFTRIAXONE 1,000 MG in 0.9 % SODIUM CHLORIDE 50 ML 100 MG IV (08:26)
[2023-04-11] MEDS: PREDNISONE 20 MG TABLET 40 MG PO (08:26)
--- NOTE | 2023-04-11 09:34 | CM.NOTE ---
Rounding with Dr. Adame. No anticipated discharge today. Dr. Adame feel maybe one or two more days. Anticipated discharge to [place] when ready.
--- NOTE | 2023-04-11 10:44 | CM.NOTE ---
No discharge today, will send updates to [facility].
[2023-04-11] MEDS: BUDESONIDE 0.5 MG/2 ML AMPULE NEB IH ×2 (11:16→23:43)
[2023-04-11 11:39] LABS: Glucometer 247 mg/dL (74-106)
--- NOTE | 2023-04-11 11:41 | PM.IMPN1 ---
Progress Note: A&P Assessment and Plan (1) Acute respiratory failure with hypercapnia: Assessment and Plan: Improved with BIPAP. Exacerbated due to Pneumonia, possible HF, and high dose of Lyrica. Suspect underlying chronic resp failure with hypercapnia. Will require outpatient testing for it. (2) Acute and chronic respiratory failure with hypoxia: Assessment and Plan: Neg resp panel. CTA - negative for PE. C/w duonebs, prednisone. Pulm on board. Slowly improving. (3) Bacterial pneumonia: Assessment and Plan: On Rocephin. No resp complaints but worsening hypoxia. CTA shows b/l pleural effusion, possible b/l consolidation. (4) Acute congestive heart failure: Assessment and Plan: appears euvolemic more or less. Cw PO lasix ECHO normal LVEF. Qualifiers: Heart failure type: unspecified Qualified Code(s): I50.9 - Heart failure, unspecified (5) Gastrointestinal bleed: Assessment and Plan: Received 4 units PRBC. Hb remains stable and no evidence of overt/bleeding noted. C/w PO omeprazole. EGD - no active pathology noted. Qualifiers: GI bleed type/associated pathology: unspecified gastrointestinal hemorrhage type Qualified Code(s): K92.2 - Gastrointestinal hemorrhage, unspecified (6) Iron deficiency anemia due to chronic blood loss: Assessment and Plan: Required 4 units PRBC. (7) Lesion of bladder: Assessment and Plan: incidental finding. Will need outpatient f/u with Urology. (8) HLD (hyperlipidemia): Assessment and Plan: C/w Lipitor Qualifiers: Hyperlipidemia type: mixed hyperlipidemia Qualified Code(s): E78.2 - Mixed hyperlipidemia (9) Hypothyroid: Assessment and Plan: c/w levothyroxine Qualifiers: Hypothyroidism type: unspecified Qualified Code(s): E03.9 - Hypothyroidism, unspecified (10) COPD (chronic obstructive pulmonary disease): Assessment and Plan: COPD with chronic resp with hypoxia. Diminished air entry with wheezing , improved today. C/w duonebs. prednisone. Qualifiers: COPD type: COPD with acute exacerbation Qualified Code(s): J44.1 - Chronic obstructive pulmonary disease with (acute) exacerbation Plan Continues to require high flow O2 - wean off O2 as tolerated. Monitor closely. Internal Medicine - PN: Subj Subjective Interval history: Seen and examined. No events overnight. Now on 40% FIO2. Exam Constitutional Vital Signs, click to edit/add: Last Vital Signs Temp 97.6 F 04/11/23 06:00 Pulse 77 04/11/23 11:17 Resp 18 04/11/23 06:00 BP 115/61 04/11/23 06:00 Pulse Ox 90 L 04/11/23 11:17 O2 Del Method Vapotherm 04/11/23 11:17 O2 Flow Rate 30 04/11/23 11:17 FiO2 40 04/11/23 11:17 Documenting provider has reviewed patient's vital signs: yes Common normals: no apparent distress and oriented x3 General appearance: cooperative and frail appearing Respiratory Common normals: normal respiratory effort Effort & inspection: able to speak in complete sentences Auscultation: rhonchi and diminished lung sounds Cardio Common normals: regular rate, S1 normal heart sound and S2 normal heart sound Rate: regular rate Heart sounds: S1 normal and S2 normal Neuro Common normals: oriented x3, moves all extremities and no focal motor deficits Internal Medicine - PN: Obj Da Labs Labs: Laboratory Results - last 24 hr 04/10/23 04/10/23 04/10/23 14:04 16:15 20:25 WBC RBC Hgb Hct MCV MCH MCHC RDW Plt Count MPV Neut % (Auto) Lymph % (Auto) [place] % (Auto) Eos % (Auto) Baso % (Auto) Neut # (Auto) Lymph # (Auto) [place] # (Auto) Eos # (Auto) Baso # (Auto) Abs Immat Gran (auto) Imm/Tot Granulo (auto) Puncture Site L radial ABG pH 7.443 ABG pCO2 71.3 H* ABG pO2 69.2 L ABG HCO3 48.7 H ABG O2 Saturation 94.5 ABG Base Excess 24.5 H [place] Test Positive O2 Liters/Min 30 FiO2 50 Sodium Potassium Chloride Carbon Dioxide Anion Gap BUN Creatinine Est GFR ( Amer) Est GFR (Non-Af Amer) BUN/Creatinine Ratio Glucose Calcium Total Bilirubin AST ALT Alkaline Phosphatase Total Protein Albumin Globulin Albumin/Globulin Ratio POC Glucose 232 H 171 H 04/11/23 04/11/23 04:25 11:38 WBC 10.8 RBC 3.09 L Hgb 8.2 L Hct 29.0 L MCV 93.9 MCH 26.5 L MCHC 28.3 L RDW 19.9 H Plt Count 147 L MPV 11.6 Neut % (Auto) 88.9 H Lymph % (Auto) 6.2 L [place] % (Auto) 4.3 Eos % (Auto) 0.0 L Baso % (Auto) 0.1 L Neut # (Auto) 9.6 H Lymph # (Auto) 0.7 L [place] # (Auto) 0.5 Eos # (Auto) 0.0 Baso # (Auto) 0.0 Abs Immat Gran (auto) 0.05 H Imm/Tot Granulo (auto) 0.5 Puncture Site ABG pH ABG pCO2 ABG pO2 ABG HCO3 ABG O2 Saturation ABG Base Excess [place] Test O2 Liters/Min FiO2 Sodium 143 Potassium 4.3 Chloride 98 Carbon Dioxide 45.2 H Anion Gap 4.1 BUN 36.0 H Creatinine 0.91 Est GFR ( Amer) >60 Est GFR (Non-Af Amer) >60 BUN/Creatinine Ratio 39.6 Glucose 114 H Calcium 8.0 L Total Bilirubin 0.2 AST 8 L ALT 12 L Alkaline Phosphatase 56 Total Protein 6.3 L Albumin 2.8 L Globulin 3.5 Albumin/Globulin Ratio 0.8 POC Glucose 247 H
--- NOTE | 2023-04-11 12:04 | CM.NOTE ---
Called Day at [facility] for update on pt, no discharge today. Updates faxed.
--- NOTE | 2023-04-11 13:09 | PM.PLPN ---
Progress Note: A&P Assessment and Plan (1) Acute and chronic respiratory failure with hypoxia: Assessment and Plan: 1. Shich-xp-okibfzf hypercapnic respiratory failure. Continue with Vapotherm for CO2 washout. No current evidence of reaccumulation - holding off on repeating ABG. If she will not consider NIV outpatient, then she remains at risk for recurrent episodes of hypercapnia that could lead to intubation. 2. Onayw-vb-kgpnmvn hypoxic respiratory failure. Goal SpO2 88-92% to prevent hyperoxic-induced hypercapnia. Continue weaning Vapotherm as tolerated to nasal cannula. 3. Centrilobular emphysema. Secondary to tobacco abuse. Restart Trelegy outpatient. Needs established with a network operations project manager. 4. Bibasilar infiltrates (abnormal chest CT) of unclear etiology. Added IPV yesterday which seems to be helping. 5. Bilateral pleural effusions. Can monitor - no thoracentesis planned. 6. Anemia secondary to blood loss. EGD negative for acute bleed. Outpatient F/U. 7. History of tobacco abuse. Subjective Subjective Interval history: Spoke with RN & RT. Patient is doing a little better today. Have been able to wean down FiO2 on Vapotherm from 50% to 40% and SpO2 is remaining ~90%. The patient states she feels about the same, but at least not worse. She started IPV yesterday and notes that it does seem to help loosen secretions. No new issues yesterday. Exam Constitutional Vital Signs, click to edit/add: Last Vital Signs Temp 97.6 F 04/11/23 06:00 Pulse 77 04/11/23 11:17 Resp 18 04/11/23 06:00 BP 115/61 04/11/23 06:00 Pulse Ox 91 L 04/11/23 11:59 O2 Del Method Vapotherm 04/11/23 11:17 O2 Flow Rate 30 04/11/23 11:17 FiO2 40 04/11/23 11:17 Documenting provider has reviewed patient's vital signs: yes HENMT Other: Wearing Vapotherm nasal cannula. Poor dentition. Chest Common normals: inspection of chest normal Respiratory Other: Seems to have a little more air movement today (but is still quite diminished). Decrease in LLL posterior crackles. No wheezes auscultated at this time. Cardio Rate: regular rate Rhythm: regular rhythm GI Inspection: normal to inspection Extremity Other: No edema. Arms have scattered ecchymoses. Neuro Sensorium/orientation: awake and alert Psych Common normals: mental status grossly normal Activity/motor behavior: appropriate eye contact
--- NOTE | 2023-04-11 14:06 | CM.NOTE ---
Spoke with Day at [facility], they do have vapotherm capabilities if pt would need to transfer on vapotherm. Messaged Dr. Adame to update.
--- NOTE | 2023-04-11 14:53 | CM.NOTE ---
Discussed with pt again regarding Important Message From Medicare, pt verbalizes understanding and denies any questions or concerns.
[2023-04-11 16:15] LABS: Glucometer 179 mg/dL (74-106)
[2023-04-11] MEDS: ACETAMINOPHEN 500 MG TABLET 1000 MG PO (18:35)
[2023-04-11] MEDS: SODIUM CHLORIDE 0.9% INHALATION 3 ML NEB 6 ML IH (19:48)
--- NOTE | 2023-04-11 19:48 | RESP.RT ---
decreased Fi02 down to 50%
[2023-04-11 20:13] LABS: Glucometer 289 mg/dL (74-106)
[2023-04-11] MEDS: ATORVASTATIN CALCIUM 20 MG TABLET PO (20:21)
--- NOTE | 2023-04-11 23:43 | RESP.RT ---
IPV not given. Pt sleeping. Breathing tx given inline with vapotherm instead.
--- NOTE | 2023-04-11 23:43 | RESP.RT ---
decreased Fi02 down to 45%
[2023-04-12] VITALS (22 sets, daily range): BP systolic 118–153; BP diastolic 45–75; PULSE 55–98; RESP 18–22; TEMP 36.7–36.8; O2SAT 84–98
[2023-04-12] MEDS: IPRATROPIUM/ALBUTEROL SULFATE 3 ML AMPUL.NEB IH ×5 (03:55→23:04)
--- NOTE | 2023-04-12 03:55 | RESP.RT ---
IPV not given. Pt sleeping. Breathing tx given inline with Vapotherm.
--- NOTE | 2023-04-12 03:55 | RESP.RT ---
decreased Fi02 down to 35%
[2023-04-12 06:06] LABS: Basophils Percent Auto 0.2 % (0.2-2.0); Eosinophils Percent Auto 0.2 % (0.9-7.0); Hematocrit 29.2 % (36.0-48.0); Hemoglobin 8.3 g/dL (12.0-16.0); Immature Granulocytes Abs Auto 0.02 10^3/uL (0.00-0.03); Immature Granulocytes Pct Auto 0.2 % (0.0-0.5); Lymphocytes Absolute Auto 1.4 10^3/uL (1.2-3.8); Lymphocytes Percent Auto 17.2 % (20.5-60.0); Mean Corpuscular HGB Conc 28.4 g/dL (29.9-35.2); Mean Corpuscular Volume 95.1 fL (81.0-99.0); Mean Platelet Volume 11.9 fL (9.5-13.5); Monocytes Absolute Auto 0.7 10^3/uL (0.3-0.8); Monocytes Percent Auto 8.4 % (1.7-12.0); Neutrophils Percent Auto 73.8 % (43.0-75.0); Platelet Count 139 10^3/uL (150-450); Red Blood Count 3.07 10^6/uL (4.20-5.40); Red Cell Distribution Width 20.2 % (11.0-15.0); White Blood Count 8.1 10^3/uL (4.0-11.0)
[2023-04-12] MEDS: LEVOTHYROXINE SODIUM 125 MCG TABLET PO (06:21)
[2023-04-12 06:56] LABS: Alanine Aminotransferase 19 U/L (14-59); Albumin Globulin Ratio 0.8; Albumin Level 2.7 g/dL (3.4-5.0); Alkaline Phosphatase 55 U/L (46-116); Anion Gap 3.2; Aspartate Amino Transferase 21 U/L (15-37); BUN Creatinine Ratio 45.7; Bilirubin Total 0.2 mg/dL (0.2-1.0); Calcium 8.9 mg/dL (8.5-10.1); Carbon Dioxide 43.1 mmol/L (21.0-32.0); Chloride 101 mmol/L (98-107); Estimated GFR (African America >60 (>=60); Estimated GFR (Non-African Ame >60 (>=60); Globulin 3.5 g/dL; Glucose 92 mg/dL (74-106); Potassium 3.3 mmol/L (3.5-5.1); Sodium 144 mmol/L (136-145); Total Protein 6.2 g/dL (6.4-8.2)
[2023-04-12] MEDS: PREDNISONE 20 MG TABLET 40 MG PO (09:25)
[2023-04-12] MEDS: FUROSEMIDE 40 MG TABLET PO (09:25)
[2023-04-12] MEDS: PREGABALIN 100 MG CAPSULE PO ×2 (09:25→20:23)
[2023-04-12] MEDS: OMEPRAZOLE 40 MG CAPSULE.DR PO ×2 (09:25→20:23)
[2023-04-12] MEDS: QUETIAPINE FUMARATE 100 MG TABLET PO ×2 (09:25→20:23)
[2023-04-12] MEDS: 0.9 % SODIUM CHLORIDE 250 ML 10 ML IV (09:26)
[2023-04-12] MEDS: CEFTRIAXONE 1,000 MG in 0.9 % SODIUM CHLORIDE 50 ML 100 MG IV (09:26)
[2023-04-12] MEDS: POTASSIUM CHLORIDE 10 MEQ ER TABLET 40 MEQ PO (09:31)
--- NOTE | 2023-04-12 10:21 | CM.NOTE ---
No anticipated discharge today due to desating with any movement. Plan is spring once medically stable.
[2023-04-12] MEDS: ACETAMINOPHEN 500 MG TABLET 1000 MG PO ×2 (10:43→21:06)
[2023-04-12] MEDS: BUDESONIDE 0.5 MG/2 ML AMPULE NEB IH ×2 (11:08→23:04)
[2023-04-12] MEDS: SODIUM CHLORIDE 0.9% INHALATION 3 ML NEB 6 ML IH (11:08)
[2023-04-12 11:54] LABS: Glucometer 110 mg/dL (74-106)
--- NOTE | 2023-04-12 11:54 | CM.NOTE ---
Spoke with Day from [facility] [place], pt will not discharge today. Pt not medically stable for discharge. Updates sent to [facility].
--- NOTE | 2023-04-12 12:32 | P.PLPN_ITS ---
Progress Note: A&P Assessment and Plan (1) Acute and chronic respiratory failure with hypoxia: Assessment and Plan: 1. Axhgf-uc-vcwvcaa hypercapnic respiratory failure. ?Clinically appears to be improved.? Remains at risk for future exacerbations.? 2. Akgyd-yy-jhckrmf hypoxic respiratory failure. Goal SpO2 88-92% to prevent hyperoxic-induced hypercapnia. Weaning O2 ? overall trends seem to be improving. 3. Centrilobular emphysema. Secondary to tobacco abuse. Continue with bronchodilators.? Trelegy to restart upon discharge. 4. Bibasilar infiltrates (abnormal chest CT) of unclear etiology. Does not appear to be clinically worsening.? Continue with pulmonary toilet, IPV, nebs. 5. Bilateral pleural effusions. Can monitor - no thoracentesis planned. 6. Anemia secondary to blood loss. EGD negative for acute bleed. Outpatient F/U. 7. History of tobacco abuse. Subjective Subjective Interval history: Spoke with RN. Continuing to attempt to wean FiO2 as tolerated - had mild setba ck requiring increase in flow yesterday, but now back down to FiO2 35% on Vapotherm. Patient states her back hurts from the bed. Otherwise no new pulmonary issues. Exam Constitutional Vital Signs, click to edit/add: Last Vital Signs Temp 98.1 F 04/12/23 05:36 Pulse 74 04/12/23 11:09 Resp 18 04/12/23 05:36 BP 118/45 L 04/12/23 05:36 Pulse Ox 97 04/12/23 11:09 O2 Del Method Vapotherm 04/12/23 11:09 O2 Flow Rate 30 04/12/23 11:09 FiO2 35 04/12/23 11:09 Documenting provider has reviewed patient's vital signs: yes General appearance: comfortable HENMT Other: Wearing Vapotherm nasal cannula. Poor dentition. Chest Common normals: inspection of chest normal Chest: symmetrical chest wall rise Respiratory Other: Decreased breath sounds bilaterally. Faint expiratory wheezes. Crackles in bases L > R. Cardio Rate: regular rate Rhythm: regular rhythm GI Inspection: normal to inspection Extremity Common normals: no clubbing, cyanosis or edema Neuro Sensorium/orientation: awake and alert Psych Attention/concentration: attention grossly intact Memory/cognition: memory grossly intact
--- NOTE | 2023-04-12 13:00 | P.IMPN_ITS ---
Progress Note: A&P Assessment and Plan (1) Acute and chronic respiratory failure with hypoxia: Assessment and Plan: Neg resp panel. CTA - negative for PE. C/w duonebs, prednisone. Pulm on board. Slowly improving. (2) Bacterial pneumonia: Assessment and Plan: On Rocephin. No resp complaints but persistent hypoxia. Slowly improving. (3) Acute respiratory failure with hypercapnia: Assessment and Plan: Resolved with BIPAP. Suspect underlying chronic hypercapnia and will need outpatient testing. (4) Gastrointestinal bleed: Assessment and Plan: Received 4 units PRBC. Hb remains stable and no evidence of overt/bleeding noted. C/w PO omeprazole. EGD - no active pathology noted. Qualifiers: GI bleed type/associated pathology: unspecified gastrointestinal hemorrhage type Qualified Code(s): K92.2 - Gastrointestinal hemorrhage, unspecified (5) Iron deficiency anemia due to chronic blood loss: Assessment and Plan: Required 4 units PRBC. (6) Lesion of bladder: Assessment and Plan: incidental finding. Will need outpatient f/u with Urology. (7) HLD (hyperlipidemia): Assessment and Plan: C/w Lipitor Qualifiers: Hyperlipidemia type: mixed hyperlipidemia Qualified Code(s): E78.2 - Mixed hyperlipidemia (8) Hypothyroid: Assessment and Plan: c/w levothyroxine Qualifiers: Hypothyroidism type: unspecified Qualified Code(s): E03.9 - Hypothyroidism, unspecified (9) Chronic hypoxic respiratory failure: Assessment and Plan: On 3 L at baseline. (10) COPD (chronic obstructive pulmonary disease): Assessment and Plan: COPD with chronic resp with hypoxia. Diminished air entry with wheezing , improved today. C/w duonebs. prednisone. Qualifiers: COPD type: COPD with acute exacerbation Qualified Code(s): J44.1 - Chronic obstructive pulmonary disease with (acute) exacerbation (11) Acute congestive heart failure: Assessment and Plan: appears euvolemic more or less. Cw PO lasix ECHO normal LVEF. Qualifiers: Heart failure type: unspecified Qualified Code(s): I50.9 - Heart failure, unspecified Plan Continues to require high flow O2 - wean off O2 as tolerated. Monitor closely. Internal Medicine - PN: Subj Subjective Interval history: Seen and examined. No events overnight. On 35% FiO2. Feels well and comfortable. Last evening she required O2 upto 60 % when she was moved from her bed to chair for PT but recovered quickly. Exam Constitutional Vital Signs, click to edit/add: Last Vital Signs Temp 98.1 F 04/12/23 05:36 Pulse 74 04/12/23 11:09 Resp 18 04/12/23 05:36 BP 118/45 L 04/12/23 05:36 Pulse Ox 97 04/12/23 11:09 O2 Del Method Vapotherm 04/12/23 11:09 O2 Flow Rate 30 04/12/23 11:09 FiO2 35 04/12/23 11:09 Documenting provider has reviewed patient's vital signs: yes Common normals: no apparent distress and oriented x3 General appearance: cooperative and frail appearing Respiratory Common normals: normal respiratory effort Effort & inspection: able to speak in complete sentences Auscultation: wheezes and diminished lung sounds Cardio Common normals: regular rate, S1 normal heart sound and S2 normal heart sound Rate: regular rate Heart sounds: S1 normal and S2 normal Neuro Common normals: oriented x3, moves all extremities and no focal motor deficits Internal Medicine - PN: Obj Da Labs Labs: Laboratory Results - last 24 hr 04/11/23 04/11/23 04/12/23 16:13 20:12 05:29 WBC 8.1 RBC 3.07 L Hgb 8.3 L Hct 29.2 L MCV 95.1 MCH 27.0 MCHC 28.4 L RDW 20.2 H Plt Count 139 L MPV 11.9 Neut % (Auto) 73.8 Lymph % (Auto) 17.2 L Harney % (Auto) 8.4 Eos % (Auto) 0.2 L Baso % (Auto) 0.2 Neut # (Auto) 6.0 Lymph # (Auto) 1.4 Harney # (Auto) 0.7 Eos # (Auto) 0.0 Baso # (Auto) 0.0 Abs Immat Gran (auto) 0.02 Imm/Tot Granulo (auto) 0.2 Sodium 144 Potassium 3.3 L Chloride 101 Carbon Dioxide 43.1 H Anion Gap 3.2 BUN 37.0 H Creatinine 0.81 Est GFR ( Amer) >60 Est GFR (Non-Af Amer) >60 BUN/Creatinine Ratio 45.7 Glucose 92 Calcium 8.9 Total Bilirubin 0.2 AST 21 ALT 19 Alkaline Phosphatase 55 Total Protein 6.2 L Albumin 2.7 L Globulin 3.5 Albumin/Globulin Ratio 0.8 POC Glucose 179 H 289 H 04/12/23 11:53 WBC RBC Hgb Hct MCV MCH MCHC RDW Plt Count MPV Neut % (Auto) Lymph % (Auto) Harney % (Auto) Eos % (Auto) Baso % (Auto) Neut # (Auto) Lymph # (Auto) Harney # (Auto) Eos # (Auto) Baso # (Auto) Abs Immat Gran (auto) Imm/Tot Granulo (auto) Sodium Potassium Chloride Carbon Dioxide Anion Gap BUN Creatinine Est GFR ( Amer) Est GFR (Non-Af Amer) BUN/Creatinine Ratio Glucose Calcium Total Bilirubin AST ALT Alkaline Phosphatase Total Protein Albumin Globulin Albumin/Globulin Ratio POC Glucose 110 H
[2023-04-12 16:44] LABS: Glucometer 203 mg/dL (74-106)
[2023-04-12 19:53] LABS: Glucometer 166 mg/dL (74-106)
[2023-04-12] MEDS: ATORVASTATIN CALCIUM 20 MG TABLET PO (20:23)
[2023-04-13] VITALS (23 sets, daily range): BP systolic 108–145; BP diastolic 55–69; PULSE 55–88; RESP 18–20; TEMP 36.4–36.9; O2SAT 83–100
[2023-04-13] MEDS: IPRATROPIUM/ALBUTEROL SULFATE 3 ML AMPUL.NEB IH ×6 (03:57→23:47)
[2023-04-13] MEDS: LEVOTHYROXINE SODIUM 125 MCG TABLET PO (04:56)
--- NOTE | 2023-04-13 09:11 | RESP.RT ---
decreased to 3 lpm at this time
--- NOTE | 2023-04-13 09:27 | PM.PN ---
Progress Note: Subjective Subjective Interval history: Seen and examined. No events overnight. On 35% FiO2. Feels well and comfortable. Up in the chair answering questions. No complaints or issues. Exam Narrative Exam Narrative: General: Patient is alert, and oriented to person, place and time Skin: no visible rashes, or ulcers Head: atraumatic, acephalic Eyes: PERRLA, no nystagmus present, conjunctiva clear, no scleral icterus Ears: normal gross auditory acuity Mouth/Throat: poor dentition Heart: Normal rate and rhythm, no murmurs/rubs/gallops Lungs: audible wheezes and crackles and diminished breath sounds all lung nino Musculoskeletal: no swelling bilateral lower extremities Neuro: CN II-X grossly intact Constitutional Vital Signs, click to edit/add: Last Vital Signs Temp 97.6 F 04/13/23 04:38 Pulse 55 L 04/13/23 04:38 Resp 18 04/13/23 04:38 BP 108/55 04/13/23 04:38 Pulse Ox 97 04/13/23 09:05 O2 Del Method Nasal Cannula 04/13/23 09:05 O2 Flow Rate 4 04/13/23 09:05 FiO2 40 04/13/23 07:40 Progress Note: A&P Assessment and Plan (1) Acute and chronic respiratory failure with hypoxia: Assessment and Plan: Negative respiratory panel, negative CTA, continue with nebs, prednisone, rocephin and levaquin. slowly improving (2) Bacterial pneumonia: Assessment and Plan: Causing #1, cultures pending (3) Acute respiratory failure with hypercapnia: Assessment and Plan: Resolved with BIPAP. Suspect underlying chronic hypercapnia and will need outpatient testing. (4) Gastrointestinal bleed: Assessment and Plan: Received 4 units PRBC. Hb remains stable and no evidence of overt/bleeding noted. continue omeprazole Qualifiers: GI bleed type/associated pathology: unspecified gastrointestinal hemorrhage type Qualified Code(s): K92.2 - Gastrointestinal hemorrhage, unspecified (5) Iron deficiency anemia due to chronic blood loss: Assessment and Plan: monitor (6) Lesion of bladder: Assessment and Plan: incidental finding will need outpatient workup (7) HLD (hyperlipidemia): Assessment and Plan: continue Lipitor Qualifiers: Hyperlipidemia type: mixed hyperlipidemia Qualified Code(s): E78.2 - Mixed hyperlipidemia (8) Hypothyroid: Assessment and Plan: continue levothyroxine Qualifiers: Hypothyroidism type: unspecified Qualified Code(s): E03.9 - Hypothyroidism, unspecified (9) Chronic hypoxic respiratory failure: Assessment and Plan: uses oxygen at baseline at 3 L nasal cannula secondary to chronic obstructive pulmonary disease (10) COPD (chronic obstructive pulmonary disease): Assessment and Plan: Will need long-acting steroid inhaler at discharge Qualifiers: COPD type: COPD with acute exacerbation Qualified Code(s): J44.1 - Chronic obstructive pulmonary disease with (acute) exacerbation (11) Acute congestive heart failure: Assessment and Plan: no acute congestive heart failure at this time, continue with oral Lasix, echo showed preserved left ventricular ejection fraction Qualifiers: Heart failure type: unspecified Qualified Code(s): I50.9 - Heart failure, unspecified Plan patient is a DNR CCA Holding anticoagulants secondary to patient's anemia and bleed history As inpatient status as expected to stay until she is at her baseline respiratory status.
[2023-04-13] MEDS: PREDNISONE 20 MG TABLET 40 MG PO (09:52)
[2023-04-13] MEDS: FUROSEMIDE 40 MG TABLET PO (09:52)
[2023-04-13] MEDS: PREGABALIN 100 MG CAPSULE PO ×2 (09:52→20:03)
[2023-04-13] MEDS: OMEPRAZOLE 40 MG CAPSULE.DR PO ×2 (09:52→20:03)
[2023-04-13] MEDS: QUETIAPINE FUMARATE 100 MG TABLET PO ×2 (09:52→20:03)
[2023-04-13] MEDS: CEFTRIAXONE 1,000 MG in 0.9 % SODIUM CHLORIDE 50 ML 100 MG IV (09:52)
--- NOTE | 2023-04-13 10:30 | PT.DAILY ---
Physical Therapy Daily Note PT Daily Note/Assess Start: 04/06/23 12:28 Freq: Status: Active Protocol: Document 04/13/23 08:32 DI (Rec: 04/13/23 10:30 DI [id number]) Physical Therapy Daily Note/Assessment Time In/Time Out Time In 08:32 Time Out 08:47 Subjective Subjective Reports feeling better. On 35 percent vapo-therm. RT is going to be putting patient on NC after PT. But states do PT first. Patient reports some stiffness, but overall okay. Therapeutic Exercise Time Therapeutic Exercise Minutes (minutes) 5 Therapeutic Exercise Units 0 Therapeutic Exercise Treatment Therapeutic Exercise Treatment Supine exercises with AP, QS, GS, heel slides and SLR all with 10 reps. SPO2 92-94 percent throughout RX. Therapeutic Activity Time Therapeutic Activity Minutes (minutes) 1 Therapeutic Activity Units 10 Therapeutic Activity Treatment Bed Mobility Ability Modified Independent Chair Transfer Ability Contact Guard Assist Therapeutic Activity Comments Supine to sit EOB mod. Ind. Unsupported bedside sitting x 5 min with SPO2 to 89 percent. Patient reports fatigued and SOB wanting to lye back down after 5 min. Sit to stand with CGA, 2 steps to HOB with 1 UE support on rail of bed and CGA. SPO2 maintained at 89 percent. Sit to supine mod. Ind. SPO2 was 92 percent post RX. Total Physical Therapy Time Total Therapy Minutes 6 Total Physical Therapy Units 10 Summary Daily Note Summary Patient showed significant improvement with EOB sitting and standing with SPO2 maintaining about 88 percent. Patient does report moderate to severe fatigue post 15 minutes of activity however.
[2023-04-13] MEDS: SODIUM CHLORIDE 0.9% INHALATION 3 ML NEB 6 ML IH ×3 (11:35→19:58)
[2023-04-13] MEDS: BUDESONIDE 0.5 MG/2 ML AMPULE NEB IH ×2 (11:35→23:47)
[2023-04-13] MEDS: ACETAMINOPHEN 500 MG TABLET 1000 MG PO (13:12)
[2023-04-13] MEDS: ATORVASTATIN CALCIUM 20 MG TABLET PO (20:03)
[2023-04-13] MEDS: HYDROXYZINE PAMOATE 25 MG CAPSULE PO (20:03)
[2023-04-14] VITALS (23 sets, daily range): BP systolic 125–132; BP diastolic 56–66; PULSE 56–93; RESP 16–181; TEMP 36.7–36.8; O2SAT 87–100
[2023-04-14] MEDS: IPRATROPIUM/ALBUTEROL SULFATE 3 ML AMPUL.NEB IH ×6 (04:12→23:22)
[2023-04-14 04:51] LABS: Hematocrit 29.4 % (36.0-48.0); Hemoglobin 8.2 g/dL (12.0-16.0); Mean Corpuscular HGB Conc 27.9 g/dL (29.9-35.2); Mean Corpuscular Hemoglobin 26.5 pg (26.7-34.0); Mean Corpuscular Volume 95.1 fL (81.0-99.0); Mean Platelet Volume 11.9 fL (9.5-13.5); Platelet Count 158 10^3/uL (150-450); Red Blood Count 3.09 10^6/uL (4.20-5.40); Red Cell Distribution Width 20.1 % (11.0-15.0)
[2023-04-14] MEDS: LEVOTHYROXINE SODIUM 125 MCG TABLET PO (05:36)
[2023-04-14 05:41] LABS: Alanine Aminotransferase 27 U/L (14-59); Albumin Globulin Ratio 0.8; Albumin Level 2.8 g/dL (3.4-5.0); Alkaline Phosphatase 55 U/L (46-116); Anion Gap 3.8; Aspartate Amino Transferase 21 U/L (15-37); BUN Creatinine Ratio 42.9; Bilirubin Total 0.2 mg/dL (0.2-1.0); Calcium 8.8 mg/dL (8.5-10.1); Carbon Dioxide 40.4 mmol/L (21.0-32.0); Chloride 103 mmol/L (98-107); Estimated GFR (African America >60 (>=60); Estimated GFR (Non-African Ame >60 (>=60); Globulin 3.4 g/dL; Glucose 107 mg/dL (74-106); Potassium 4.2 mmol/L (3.5-5.1); Sodium 143 mmol/L (136-145); Total Protein 6.2 g/dL (6.4-8.2)
[2023-04-14] MEDS: SODIUM CHLORIDE 0.9% INHALATION 3 ML NEB 6 ML IH ×3 (07:34→15:54)
--- NOTE | 2023-04-14 08:09 | P.PN_ITS ---
Progress Note: Subjective Subjective Interval history: patient reports she was not able to rest much last night, just with nursing staff coming in and out multiple times last night but overall Feels well and comfortable. Up in the bed answering questions. No complaints or issues. Exam Narrative Exam Narrative: General: Patient is alert, and oriented to person, place and time Skin: no visible rashes, or ulcers Head: atraumatic, acephalic Eyes: PERRLA, no nystagmus present, conjunctiva clear, no scleral icterus Ears: normal gross auditory acuity Mouth/Throat: poor dentition Heart: Normal rate and rhythm, no murmurs/rubs/gallops Lungs: audible wheezes and crackles and diminished breath sounds all lung nino Musculoskeletal: no swelling bilateral lower extremities Neuro: CN II-X grossly intact Constitutional Vital Signs, click to edit/add: Last Vital Signs Temp 98.3 F 04/14/23 05:38 Pulse 64 04/14/23 06:00 Resp 181 H 04/14/23 05:38 BP 125/56 04/14/23 05:38 Pulse Ox 89 L 04/14/23 07:36 O2 Del Method Nasal Cannula 04/14/23 07:36 O2 Flow Rate 3 04/14/23 07:36 FiO2 40 04/13/23 07:40 Progress Note: Objective Labs Labs: Short CBC 04/14/23 Range/Units 04:15 WBC 7.0 (4.0-11.0) 10^3/uL Hgb 8.2 L (12.0-16.0) g/dL Hct 29.4 L (36.0-48.0) % Plt Count 158 (150-450) 10^3/uL BMP 04/14/23 04:15 Sodium 143 Potassium 4.2 Chloride 103 Carbon Dioxide 40.4 H BUN 36.0 H Creatinine 0.84 Glucose 107 H Calcium 8.8 Liver Function 04/14/23 Range/Units 04:15 Total Bilirubin 0.2 (0.2-1.0) mg/dL AST 21 (15-37) U/L ALT 27 (14-59) U/L Alkaline Phosphatase 55 (46-116) U/L Albumin 2.8 L (3.4-5.0) g/dL Progress Note: A&P Assessment and Plan (1) Acute and chronic respiratory failure with hypoxia: Assessment and Plan: Negative respiratory panel, negative CTA, continue with nebs, prednisone, rocephin and levaquin. slowly improving (2) Bacterial pneumonia: Assessment and Plan: Causing #1, cultures pending (3) Acute respiratory failure with hypercapnia: Assessment and Plan: Resolved with BIPAP. Suspect underlying chronic hypercapnia and will need outpatient testing. (4) Gastrointestinal bleed: Assessment and Plan: Received 4 units PRBC. Hb remains stable and no evidence of overt/bleeding noted. continue omeprazole Qualifiers: GI bleed type/associated pathology: unspecified gastrointestinal hemorrhage type Qualified Code(s): K92.2 - Gastrointestinal hemorrhage, un specified (5) Iron deficiency anemia due to chronic blood loss: Assessment and Plan: monitor (6) Lesion of bladder: Assessment and Plan: incidental finding will need outpatient workup (7) HLD (hyperlipidemia): Assessment and Plan: continue Lipitor Qualifiers: Hyperlipidemia type: mixed hyperlipidemia Qualified Code(s): E78.2 - Mixed hyperlipidemia (8) Hypothyroid: Assessment and Plan: continue levothyroxine Qualifiers: Hypothyroidism type: unspecified Qualified Code(s): E03.9 - Hypothyroidism, unspecified (9) Chronic hypoxic respiratory failure: Assessment and Plan: uses oxygen at baseline at 3 L nasal cannula secondary to chronic obstructive pulmonary disease (10) COPD (chronic obstructive pulmonary disease): Assessment and Plan: Will need long-acting steroid inhaler at discharge, and pulmonary follow up Qualifiers: COPD type: COPD with acute exacerbation Qualified Code(s): J44.1 - Chronic obstructive pulmonary disease with (acute) exacerbation (11) Acute congestive heart failure: Assessment and Plan: no acute congestive heart failure at this time, continue with oral Lasix, echo showed preserved left ventricular ejection fraction Qualifiers: Heart failure type: unspecified Qualified Code(s): I50.9 - Heart failure, unspecified Plan patient is a DNR CCA Holding anticoagulants secondary to patient's anemia and bleed history As inpatient status as expected to stay until she is at her baseline respiratory status, hopeful discharge to SNF tomorrow
[2023-04-14] MEDS: PREDNISONE 20 MG TABLET 40 MG PO (10:09)
[2023-04-14] MEDS: FUROSEMIDE 40 MG TABLET PO (10:10)
[2023-04-14] MEDS: OMEPRAZOLE 40 MG CAPSULE.DR PO ×2 (10:10→20:13)
[2023-04-14] MEDS: QUETIAPINE FUMARATE 100 MG TABLET PO ×2 (10:10→20:13)
[2023-04-14] MEDS: PREGABALIN 100 MG CAPSULE PO ×2 (10:10→20:13)
[2023-04-14] MEDS: CEFTRIAXONE 1,000 MG in 0.9 % SODIUM CHLORIDE 50 ML 100 MG IV (10:13)
[2023-04-14] MEDS: BUDESONIDE 0.5 MG/2 ML AMPULE NEB IH ×2 (11:10→23:22)
[2023-04-14] MEDS: ACETAMINOPHEN 500 MG TABLET 1000 MG PO (11:12)
--- NOTE | 2023-04-14 19:23 | RESP.RT ---
Pt refused IPVand wants breathing txs to be done with aerogen and aerosol mask instead for the rest of the night.
[2023-04-14] MEDS: HYDROXYZINE PAMOATE 25 MG CAPSULE PO (20:13)
[2023-04-14] MEDS: ATORVASTATIN CALCIUM 20 MG TABLET PO (20:13)
[2023-04-15] VITALS (11 sets, daily range): BP systolic 148–149; BP diastolic 68–70; PULSE 62–95; RESP 16–24; TEMP 36.9; O2SAT 86–98
[2023-04-15 04:58] LABS: Hematocrit 30.6 % (36.0-48.0); Hemoglobin 8.7 g/dL (12.0-16.0); Mean Corpuscular HGB Conc 28.4 g/dL (29.9-35.2); Mean Corpuscular Hemoglobin 27.3 pg (26.7-34.0); Mean Corpuscular Volume 95.9 fL (81.0-99.0); Platelet Count 184 10^3/uL (150-450); Red Blood Count 3.19 10^6/uL (4.20-5.40); Red Cell Distribution Width 19.9 % (11.0-15.0); White Blood Count 6.1 10^3/uL (4.0-11.0)
[2023-04-15 05:27] LABS: Alanine Aminotransferase 39 U/L (14-59); Albumin Globulin Ratio 0.9; Albumin Level 2.9 g/dL (3.4-5.0); Alkaline Phosphatase 61 U/L (46-116); Anion Gap 5.2; Aspartate Amino Transferase 30 U/L (15-37); BUN Creatinine Ratio 38.1; Bilirubin Total 0.2 mg/dL (0.2-1.0); Calcium 8.2 mg/dL (8.5-10.1); Carbon Dioxide 38.8 mmol/L (21.0-32.0); Chloride 103 mmol/L (98-107); Estimated GFR (African America >60 (>=60); Estimated GFR (Non-African Ame >60 (>=60); Globulin 3.3 g/dL; Glucose 178 mg/dL (74-106); Sodium 143 mmol/L (136-145); Total Protein 6.2 g/dL (6.4-8.2)
[2023-04-15] MEDS: LEVOTHYROXINE SODIUM 125 MCG TABLET PO (05:37)
[2023-04-15] MEDS: IPRATROPIUM/ALBUTEROL SULFATE 3 ML AMPUL.NEB IH ×2 (07:18→11:19)
--- NOTE | 2023-04-15 08:50 | P.DS_ITS ---
DS: Providers Provider Date of admission: 04/04/23 15:49 Primary care physician: JOYCE GOULD Attending physician on admission: Shaikh Deep Consults: 04/04/23 Consult to Dietitian Routine Reason For Exam: malnutrition Reason for consultation: malnutrition Has provider been notified: Yes 04/04/23 16:46 Occupational Therapy Eval and Treat Routine Reason for consultation: Weakness Physical Therapy Eval and Treat Routine Reason for consultation: Weakness 04/04/23 16:56 Consult to General Surgeon Routine Consulting Provider: Lc Horn Reason for consultation: GI bleed 04/05/23 Consult to PICC Line RN Routine Consulting Provider: Kelechi Evans Reason for consultation: Difficult access okay for midline Has provider been notified: Yes 04/05/23 21:22 Occupational Therapy Eval and Treat Routine Reason for consultation: Weakness Physical Therapy Eval and Treat Routine Reason for consultation: Weakness 04/10/23 11:01 Consult to Pulmonology Routine Consulting Provider: Refugio Harrison Reason for consultation: Resp failure with hypoxia Discharging clinician: Pat Aleman DS: Diagnosis Discharge Diagnosis (1) Acute and chronic respiratory failure with hypoxia: (2) Bacterial pneumonia: (3) Acute respiratory failure with hypercapnia: (4) Gastrointestinal bleed: Qualifiers: GI bleed type/associated pathology: unspecified gastrointestinal hemorrhage type Qualified Code(s): K92.2 - Gastrointestinal hemorrhage, unspecified (5) Iron deficiency anemia due to chronic blood loss: (6) Lesion of bladder: (7) HLD (hyperlipidemia): Qualifiers: Hyperlipidemia type: mixed hyperlipidemia Qualified Code(s): E78.2 - Mixed hyperlipidemia (8) Hypothyroid: Qualifiers: Hypothyroidism type: unspecified Qualified Code(s): E03.9 - Hypothyroidism, unspecified (9) Chronic hypoxic respiratory failure: (10) COPD (chronic obstructive pulmonary disease): Qualifiers: COPD type: COPD with acute exacerbation Qualified Code(s): J44.1 - Chronic obstructive pulmonary disease with (acute) exacerbation (11) Acute congestive heart failure: Qualifiers: Heart failure type: unspecified Qualified Code(s): I50.9 - Heart failure, unspecified DS: Summary Hospital Course Hospital Course: Patient presented to ED with SOB, weakness, found to have Hb of 3.6. Admitted for acute symptomatic anemia likely from GIB. She denied any overt GIB (hematemesis or melena). Received 4 units PRBC in total. Her Hb remained stable throughout hospital admission. She had an EGD - no sig pathology noted. Work up also revealed b/l pleural effusion and consolidation for which she was started on IV rocephin, Lasix. Patient was noted to be very drowsy,lethargic on 04/06 for which an ABG was ordered that revealed acute resp failure with hypercapnia, respiratory acidosis likely from Acute congestive HF, PNA. She also received ambien and is on very high dose of Lyrica considering her age, BMI and resp status and I suspect that certainly contributed to it. She was put on BIPAP with improvement in her mental status, acidosis and hypercapnia. Patient feels well and has no active complaints to offer today. Stable for d/c. She will be started on low dose Lasix to maintain euvolemia. She will need periodic monitoring of her anemia with CBC. She was also started on PO iron on discharge. She received one dose IV iron to help build her iron stores. Lyrica dose decreased to 100 q12 and she should avoid sedative/hypnotics in general given her chronic resp. failure and COPD. She will be transferred to longterm facility on 3 L NC. She will follow closely with pulmonary as outpatient. Status at Discharge Functional status at discharge: uses cane/walker Time Spent with Patient Time attestation: Total time spent providing and/or coordinating discharge services: Time spent: greater than 30 minutes Exam Narrative Exam Narrative: General: Patient is alert, and oriented to person, place and time with normal affect, proper hygiene Skin: no visible rashes, or ulcers Head: atraumatic, acephalic Eyes: PERRLA, no nystagmus present, conjunctiva clear, no scleral icterus Ears: normal gross auditory acuity Heart: Normal rate and rhythm, no murmurs/rubs/gallops Lungs: no audible wheezes, or crackles and diminished breath sounds all lung nino Abdomen: Normal audible bowel sounds, no distension, No palpable masses, no organomegaly, no rebound/guarding/ or rigidity Musculoskeletal: muscle atrophy noted, ROM is limited due to being in hospital bed, no swelling bilateral lower extremities Neuro: CN II-X grossly intact Constitutional Vital Signs, click to edit/add: Last Vital Signs Temp 98.4 F 04/15/23 07:35 Pulse 87 04/15/23 07:57 Resp 24 04/15/23 07:35 BP 149/70 H 04/15/23 07:35 Pulse Ox 87 L 04/15/23 07:57 O2 Del Method Nasal Cannula 04/15/23 07:35 O2 Flow Rate 3 04/15/23 07:35 FiO2 40 04/13/23 07:40 DS: Data Data Completed and Pending Labs on day of discharge: Labs from last 24 hours 04/15/23 04:17 WBC 6.1 RBC 3.19 L Hgb 8.7 L Hct 30.6 L MCV 95.9 MCH 27.3 MCHC 28.4 L RDW 19.9 H Plt Count 184 Sodium 143 Potassium 4.0 Chloride 103 Carbon Dioxide 38.8 H Anion Gap 5.2 BUN 32.0 H Creatinine 0.84 Est GFR ( Amer) >60 Est GFR (Non-Af Amer) >60 BUN/Creatinine Ratio 38.1 Glucose 178 H Calcium 8.2 L Total Bilirubin 0.2 AST 30 ALT 39 Alkaline Phosphatase 61 Total Protein 6.2 L Albumin 2.9 L Globulin 3.3 Albumin/Globulin Ratio 0.9 Discharge Plan Discharge Disposition: er SNF Condition: Good Discharge Medications: New omeprazole 40 mg capsule,delayed release(DR/EC) 40 mg PO DAILY Qty: 30 0RF cefuroxime axetil 500 mg tablet 500 mg PO BID 5 Days Qty: 10 0RF furosemide [Lasix] 20 mg tablet 20 mg PO DAILY Qty: 30 0RF ferrous sulfate 325 mg (65 mg iron) tablet,delayed release (DR/EC) 325 mg PO DAILY Qty: 30 0RF Continued albuterol sulfate 90 mcg/actuation HFA aerosol inhaler 2 puff INHALATION Q4H PRN (Reason: shortness of breath or wheezing) atorvastatin 20 mg tablet 20 mg PO DAILY levothyroxine 125 mcg tablet 125 mcg PO DAILY quetiapine 100 mg tablet 100 mg PO BID Patient Comments: last filled 02/07/23 for 30 days Breztri Aerosphere 160-9-4.8 mcg/actuation HFA aerosol inhaler 2 inh inhalation BID Changed pregabalin 150 mg capsule 100 mg PO Q12H Qty: 0 0RF Print Language: Trinidadian Forms: Portal Instructions Follow Up Appointments: F/u PCP in one week CBC in one week to ensure Hemoglobin is stable Outpatient f/u Urology for Suspected bladder neoplasm Outpatient f/u Gastroenterology need for possible colonoscopy for anemia Please make follow up with pulmonary, Dr. Harrison once discharged from SNF Discharge location: longterm facility
[2023-04-15] MEDS: PREDNISONE 20 MG TABLET 40 MG PO (09:37)
[2023-04-15] MEDS: OMEPRAZOLE 40 MG CAPSULE.DR PO (09:37)
[2023-04-15] MEDS: FUROSEMIDE 40 MG TABLET PO (09:37)
[2023-04-15] MEDS: PREGABALIN 100 MG CAPSULE PO (09:38)
[2023-04-15] MEDS: QUETIAPINE FUMARATE 100 MG TABLET PO (09:38)
[2023-04-15] MEDS: CEFTRIAXONE 1,000 MG in 0.9 % SODIUM CHLORIDE 50 ML 100 MG IV (09:38)
--- NOTE | 2023-04-15 10:08 | CM.NOTE ---
2nd Notice for Important Message From Medicare discussed with pt, pt denies any questions or concerns.
--- NOTE | 2023-04-15 10:12 | CM.NOTE ---
Rounding with Dr. Aleman. Discussed [facility]. Pt. voices agreement with this plan.
--- NOTE | 2023-04-15 11:15 | PC.NURSE ---
1114 Midline discontinued from left upper arm. Pressure held for five minutes and occlusive dressing was placed. Patient tolerated well. Total length of catheter was 12 cm.
[2023-04-15] MEDS: BUDESONIDE 0.5 MG/2 ML AMPULE NEB IH (11:19)
--- NOTE | 2023-04-15 11:41 | PT.DAILY ---
Physical Therapy Daily Note PT Daily Note/Assess Start: 04/06/23 12:28 Freq: Status: Active Protocol: Document 04/15/23 11:38 ARACELI (Rec: 04/15/23 11:41 COLINSTACIE [id number]) Physical Therapy Daily Note/Assessment Time In/Time Out Time In 11:28 Time Out 11:37 Pain In Pain N/A Pain Out Pain N/A Subjective Subjective Pt supine upon arrival. Planned dc for 1430 this afternoon. Agrees to PT. On 3L O2. Therapeutic Exercise Time Therapeutic Exercise Minutes (minutes) 3 Therapeutic Exercise Units 0 Therapeutic Exercise Treatment Therapeutic Exercise Treatment Bilat LE strengthening ex complete while sitting in BS chair 10 x ea Therapeutic Activity Time Therapeutic Activity Minutes (minutes) 5 Therapeutic Activity Units 1 Therapeutic Activity Treatment Bed Mobility Ability Modified Independent Therapeutic Activity Comments Supine>sit Nona with assist for O2 lines. Sits EOB unsupported without LOB. Sit> stand SBA. Amb HAY RAKE OPERATOR 5' to BS chair. Sits in BS chair for seated ex. remains in BS chair for lunch with call light in reach and needs met. Total Physical Therapy Time Total Therapy Minutes 8 Total Physical Therapy Units 1 Summary Daily Note Summary O2 drops to 93% with activity. HAY RAKE OPERATOR for gait today to BS chair without LOB. SOB noticed .
--- NOTE | 2023-04-15 12:10 | CM.NOTE ---
E-mailed [facility] with discharge summary, med list and CRF. Notified of discharge time 2:00 and 2:30 with [facility]. Pt also updated.
--- NOTE | 2023-04-15 12:11 | CM.NOTE ---
HENS completed online for alf transfer for skilled therapy.
--- NOTE | 2023-04-15 13:09 | PC.NURSE ---
Report called to [facility]
== END 2023-04-15 13:55 | DRG 377 ==
LOC: ER 15:17 → ICU 16:00 → MS 04-08 19:07
PROVIDERS: Family Medicine; Internal Medicine; Surgery; Admitting Provider Internal Medicine; Emergency Provider Emergency Medicine Emergency Medical Services; PCP Family Medicine; Visit Provider Family Medicine
PROC: 0DJ08ZZ Inspection of Upper Intestinal Tract, Via Natural or Artificial Opening Endoscopic (ICD-10-PCS; principal; 2023-04-05 11:00)
DX: K92.2 Gastrointestinal hemorrhage, unspecified (principal); E43 Unspecified severe protein-calorie malnutrition; I50.33 Acute on chronic diastolic (congestive) heart failure; J15.9 Unspecified bacterial pneumonia; J96.21 Acute and chronic respiratory failure with hypoxia; J96.22 Acute and chronic respiratory failure with hypercapnia; D50.0 Iron deficiency anemia secondary to blood loss (chronic); Z87.891 Personal history of nicotine dependence; Z99.81 Dependence on supplemental oxygen; Z91.81 History of falling; N32.9 Bladder disorder, unspecified; E03.9 Hypothyroidism, unspecified; J43.2 Centrilobular emphysema; E78.5 Hyperlipidemia, unspecified; Z79.51 Long term (current) use of inhaled steroids; K29.60 Other gastritis without bleeding; Z66 Do not resuscitate; Z68.24 Body mass index [BMI] 24.0-24.9, adult; Z90.49 Acquired absence of other specified parts of digestive tract; Z90.710 Acquired absence of both cervix and uterus
CPT/HCPCS: 0202U; 36410; 36415; 36430; 36592; 36600; 71045; 71275; 74177; 80053; 82140; 82800; 82805; 82948; 83880; 84484; 85014; 85018; 85025; 85027; 86850; 86900; 86901; 87635; 87811; 93005; 93306; 94640; 94660; 94667; 94668; 94761; 94799; 96365; 96366; 96367; 96368; 96375; 96376; 97110; 97112; 97162; 97165; 97530; 97535; 99285; C1887; G0328; J1756; J2704; J2930; P9016; Q9967

== ENCOUNTER 2023-10-02 10:20 | Outpatient (OUT) | payer MEDICARE, MEDICAID, SELFPAY ==
[2023-10-02 11:01] LABS: Basophils Absolute Auto 0.1 10^3/uL (0.0-0.1); Basophils Percent Auto 0.3 % (0.2-2.0); Hematocrit 35.9 % (36.0-48.0); Hemoglobin 10.5 g/dL (12.0-16.0); Immature Granulocytes Abs Auto 0.07 10^3/uL (0.00-0.03); Immature Granulocytes Pct Auto 0.4 % (0.0-0.5); Lymphocytes Absolute Auto 0.8 10^3/uL (1.2-3.8); Lymphocytes Percent Auto 3.9 % (20.5-60.0); Mean Corpuscular HGB Conc 29.2 g/dL (29.9-35.2); Mean Corpuscular Hemoglobin 28.9 pg (26.7-34.0); Mean Corpuscular Volume 98.9 fL (81.0-99.0); Mean Platelet Volume 10.7 fL (9.5-13.5); Monocytes Absolute Auto 1.1 10^3/uL (0.3-0.8); Monocytes Percent Auto 5.6 % (1.7-12.0); Neutrophils Absolute Auto 17.8 10^3/uL (1.4-6.5); Neutrophils Percent Auto 89.8 % (43.0-75.0); Platelet Count 228 10^3/uL (150-450); Red Blood Count 3.63 10^6/uL (4.20-5.40); Red Cell Distribution Width 14.8 % (11.0-15.0); White Blood Count 19.8 10^3/uL (4.0-11.0)
[2023-10-02 11:25] LABS: Estimated Average Glucose 94 mg/dL; Glycohemoglobin A1C 4.9 % (4.5-6.2)
[2023-10-02 12:49] LABS: Alanine Aminotransferase 15 U/L (14-59); Albumin Globulin Ratio 0.9; Albumin Level 3.4 g/dL (3.4-5.0); Alkaline Phosphatase 151 U/L (46-116); Anion Gap 13.5; Aspartate Amino Transferase 19 U/L (15-37); BUN Creatinine Ratio 26.4; Bilirubin Total 0.3 mg/dL (0.2-1.0); Calcium 10.3 mg/dL (8.5-10.1); Chloride 101 mmol/L (98-107); Estimated GFR (African America >60 (>=60); Estimated GFR (Non-African Ame >60 (>=60); Globulin 3.6 g/dL; Glucose 124 mg/dL (74-106); Potassium 3.5 mmol/L (3.5-5.1); Sodium 141 mmol/L (136-145)
[2023-10-02 13:02] LABS: Percent Iron Saturation 5.9 %
== END 2023-10-02 10:21 | disposition home or self-care (01) ==
LOC: LAB 10:23
PROVIDERS: PCP Nurse Practitioner Family; Visit Provider Nurse Practitioner Family
DX: R73.9 Hyperglycemia, unspecified (principal); I10 Essential (primary) hypertension; D63.8 Anemia in other chronic diseases classified elsewhere
CPT/HCPCS: 36415; 80053; 82728; 83036; 83540; 83550; 85025

== ENCOUNTER 2023-10-04 08:32 | Emergency (ER) | payer MEDICARE, MEDICAID, SELFPAY ==
[2023-10-04] VITALS (26 sets, daily range): BP systolic 154–172; BP diastolic 52–70; PULSE 62–71; TEMP 36.7; O2SAT 91–100; BMI 19.2
--- NOTE | 2023-10-04 09:12 | ED.ABDPAIN1 ---
HPI - Abdominal Pain General Chief Complaint: Abdominal Pain Stated Complaint: ABDOMINAL PAIN Time Seen by Provider: 10/04/23 08:51 Source: patient Mode of arrival: ambulance Limitations: physical limitation History of Present Illness HPI narrative: This patient is here with her son complaining of abdominal pain. She says the pain has been present for nearly 1 month. She has not alerted her primary care doctor that. Her son says that several months ago she had both an upper and lower endoscopy and they could not identify the source of her ongoing GI blood loss. She has had multiple blood transfusions in the past. She says sometimes her bowel movements are dark. She also had some outpatient labs done recently ordered by her primary care doctor. She is not vomiting. She denies any watery diarrhea. She has had cholecystectomy, total abdominal hysterectomy and appendectomy. She was not told that she had any malignancies on her upper or lower lower diascopy. She is stated to me that she is lost 17 pounds in the last several months. Related Data Home Medications ?Medication ?Instructions ?Recorded ?Confirmed albuterol sulfate 90 mcg/actuation 2 puff inhalation Q4H PRN 04/04/23 10/04/23 aerosol inhaler shortness of breath or wheezing atorvastatin 20 mg tablet 20 mg PO DAILY 04/04/23 10/04/23 budesonide 160 mcg-glycopyr 9 2 inh inhalation BID 04/04/23 04/04/23 mcg-formot 4.8 mcg/actuation HFA inhaler (Breztri Aerosphere) levothyroxine 125 mcg tablet 125 mcg PO DAILY 04/04/23 10/04/23 quetiapine 100 mg tablet 100 mg PO BID 04/04/23 Previous Rx's ?Medication ?Instructions ?Recorded cefuroxime axetil 500 mg tablet 500 mg PO BID 5 days #10 tabs 04/08/23 ferrous sulfate 325 mg (65 mg 325 mg PO DAILY #30 tabs 04/08/23 iron) tablet,delayed release furosemide 20 mg tablet (Lasix) 20 mg PO DAILY #30 tabs 04/08/23 omeprazole 40 mg capsule,delayed 40 mg PO DAILY #30 caps 04/08/23 release pregabalin 150 mg capsule 100 mg (0.6667 x 150 mg) PO Q12H 04/08/23 #0 caps Allergies Allergy/AdvReac Type Severity Reaction Status Date / Time No Known Drug Allergies Allergy Verified 04/04/23 16:06 [facility] Medical History (Updated 10/04/23 @ 11:45 by Acosta Manuel MD) HLD (hyperlipidemia) ?E78.5 - Hyperlipidemia, unspecified (ICD-10) Hypothyroid ?E03.9 - Hypothyroidism, unspecified (ICD-10) Chronic hypoxic respiratory failure ?J96.11 - Chronic respiratory failure with hypoxia (ICD-10) COPD (chronic obstructive pulmonary disease) ?J44.9 - Chronic obstructive pulmonary disease, unspecified (ICD-10) Social History Smoking status: Former smoker Exam Narrative Exam Narrative: She is awake alert there is a stress moves about comfortably she arrived by squad she is here with her son. Her vital signs are normal. Twelve-lead EKG was done on arrival and compared to previous EKGs essentially normal. She is awake alert Willard x 3 no abnormalities in her cognition she does not seem to be impaired. HEENT shows no evidence of pallor or scleral icterus. Examining examination shows her incisions consistent with previous operative procedures. She has normal bowel sounds there is no abdominal masses no hepato or splenomegaly. No guarding rebound rigidity or peritoneal findings. Her his lungs have some scattered rhonchi consistent with chronic findings of COPD. For her lower extremities show no evidence of DVT phlebitis or edema. Constitutional Vital Signs, click to edit/add: Last Vital Signs Temp 98.0 F 10/04/23 08:34 Pulse 66 10/04/23 10:40 Resp 19 10/04/23 10:40 BP 154/52 H 10/04/23 10:32 Pulse Ox 100 10/04/23 10:10 O2 Del Method Nasal Cannula 10/04/23 08:34 O2 Flow Rate 3 10/04/23 08:34 Course Vital Signs Vital signs: Vital Signs Temperature 98.0 F 10/04/23 08:34 Pulse Rate 71 10/04/23 08:34 Respiratory Rate 18 10/04/23 08:34 Blood Pressure 172/61 H 10/04/23 08:34 Pulse Oximetry 100 10/04/23 08:34 Oxygen Delivery Method Nasal Cannula 10/04/23 08:34 Oxygen Delivery Flow Rate 3 10/04/23 08:34 Temperature 98.0 F 10/04/23 08:34 Pulse Rate 66 10/04/23 10:40 Respiratory Rate 19 10/04/23 10:40 Blood Pressure 154/52 H 10/04/23 10:32 Pulse Oximetry 100 10/04/23 10:10 Oxygen Delivery Method Nasal Cannula 10/04/23 08:34 Oxygen Delivery Flow Rate 3 10/04/23 08:34 MDM - Abdominal Pain MDM Narrative Medical decision making narrative: Because of this weight loss I felt it be prudent to do CT imaging and lieu of her abdominal pain. Her electrolytes show a little bit low on her potassium so we will give her supplementation with potassium here and as an outpatient. 50s CT scan was discussed in detail with her and her son. The fractures of her ileum and pelvis are old and she was aware of those. There is no other acute findings on the CT and her blood count is greatly improved from her previously elevated white blood cell count. Her hemoglobin is stable. Lab Data Labs: Lab Results 10/04/23 Range/Units 09:47 WBC 8.9 (4.0-11.0) 10^3/uL RBC 3.18 L (4.20-5.40) 10^6/uL Hgb 9.2 L (12.0-16.0) g/dL Hct 31.0 L (36.0-48.0) % MCV 97.5 (81.0-99.0) fL MCH 28.9 (26.7-34.0) pg MCHC 29.7 L (29.9-35.2) g/dL RDW 14.2 (11.0-15.0) % Plt Count 242 (150-450) 10^3/uL MPV 10.2 (9.5-13.5) fL Neut % (Auto) 81.9 H (43.0-75.0) % Lymph % (Auto) 8.7 L (20.5-60.0) % [place] % (Auto) 7.9 (1.7-12.0) % Eos % (Auto) 0.5 L (0.9-7.0) % Baso % (Auto) 0.2 (0.2-2.0) % Neut # (Auto) 7.3 H (1.4-6.5) 10^3/uL Lymph # (Auto) 0.8 L (1.2-3.8) 10^3/uL [place] # (Auto) 0.7 (0.3-0.8) 10^3/uL Eos # (Auto) 0.0 (0.0-0.7) 10^3/uL Baso # (Auto) 0.0 (0.0-0.1) 10^3/uL Abs Immat Gran (auto) 0.07 H (0.00-0.03) 10^3/uL Imm/Tot Granulo (auto) 0.8 H (0.0-0.5) % Sodium 142 (136-145) mmol/L Potassium 2.9 L* (3.5-5.1) mmol/L Chloride 104 (98-107) mmol/L Carbon Dioxide 35.2 H (21.0-32.0) mmol/L Anion Gap 5.7 BUN 12.0 (7.0-18.0) mg/dL Creatinine 0.60 (0.55-1.02) mg/dL Est GFR ( Amer) >60 (>=60) Est GFR (Non-Af Amer) >60 (>=60) BUN/Creatinine Ratio 20.0 Glucose 104 (74-106) mg/dL Lactate 0.6 (0.4-2.0) mmol/L Calcium 8.9 (8.5-10.1) mg/dL Total Bilirubin 0.2 (0.2-1.0) mg/dL AST 10 L (15-37) U/L ALT 10 L (14-59) U/L Alkaline Phosphatase 111 (46-116) U/L Total Protein 6.8 (6.4-8.2) g/dL Albumin 2.7 L (3.4-5.0) g/dL Globulin 4.1 g/dL Albumin/Globulin Ratio 0.7 Lipase 24.0 (16.0-77.0) U/L Discharge Plan Discharge Stand Alone Forms: Portal Instructions Chief Complaint: Abdominal Pain Clinical Impression: Acute hypokalemia Patient Disposition: Home, Self-Care Time of Disposition Decision: 11:45 Prescriptions / Home Meds: No Action albuterol sulfate 90 mcg/actuation HFA aerosol inhaler 2 puff INHALATION Q4H PRN (Reason: shortness of breath or wheezing) atorvastatin 20 mg tablet 20 mg PO DAILY levothyroxine 125 mcg tablet 125 mcg PO DAILY quetiapine 100 mg tablet 100 mg PO BID Patient Comments: last filled 02/07/23 for 30 days Sharri Aerosphere 160-9-4.8 mcg/actuation HFA aerosol inhaler 2 inh inhalation BID omeprazole 40 mg capsule,delayed release(DR/EC) 40 mg PO DAILY Qty: 30 0RF cefuroxime axetil 500 mg tablet 500 mg PO BID 5 Days Qty: 10 0RF furosemide [Lasix] 20 mg tablet 20 mg PO DAILY Qty: 30 0RF pregabalin 150 mg capsule 100 mg PO Q12H Qty: 0 0RF ferrous sulfate 325 mg (65 mg iron) tablet,delayed release (DR/EC) 325 mg PO DAILY Qty: 30 0RF Print Language: [place] Additional Instructions: Take your potassium chloride tablets for the next 3 days. Follow-up with your primary care doctor if your appetite does not improve and you continue losing weight. Referrals: CONSTANTINO LYNN [Primary Care Provider] - 1 week
--- NOTE | 2023-10-04 09:15 | CT_ITS ---
[address] [address] Patient Name: VISHAL ROQUE MRN: [id number] date: 1950 Sex: F Assigned Patient Location: ED.MAIN Current Patient Location: Accession/Order Number: [id number] Exam Date: 10/04/2023 10:51 Report Date: 10/04/2023 11:31 At the request of: SEGUN ABBOTT Procedure: CT abdomen pelvis w con EXAMINATION: CT abdomen pelvis w con HISTORY: Weight loss/abdominal pain , epigastric pain radiating to back for several weeks which is increased in severity, nausea COMPARISON: CT abdomen pelvis 04/04/2023 TECHNIQUE: Axial, Coronal, and Sagittal images were obtained without and/or with IV contrast as indicated by examination type. Dose reduction techniques were achieved by using automated exposure control and/or adjustment of mA and/or kV according to patient size and/or use of iterative reconstruction technique. FINDINGS: LUNG BASES: No visible pulmonary or pleural disease. LIVER: No enlargement, atrophy, suspicious density, or significant focal lesion. BILIARY: Cholecystectomy. PANCREAS: No lesion, fluid collection, or abnormal duct dilatation. SPLEEN: No enlargement or focal lesion. ADRENALS: No mass or enlargement. KIDNEYS: Nonobstructing 3 mm stone within right kidney. Bilateral benign-appearing renal cysts. Mild indistinctness of the margins of the right ureter, but no appreciable stone or obstruction. BOWEL/MESENTERY: Diverticulosis of distal colon without acute inflammatory changes. No visible mass, obstruction, or bowel wall thickening. AORTA/VASCULAR: Moderate atherosclerotic disease. No aneurysm or dissection. RETROPERITONEUM: No mass or adenopathy. LYMPH NODES: No adenopathy. URINARY BLADDER: No visible focal wall thickening, lesion, or calculus. PELVIC ORGANS: Hysterectomy. ABDOMINAL WALL: No mass or hernia. BONES: Comminuted fracture of left ilium with callus formation. Displaced fractures of the superior and inferior left pubic rami with callus formation. Moderate compression fracture involving superior endplate of L2 and L3 vertebral bodies. OTHER: Negative. CT/CT abdomen pelvis w con IMPRESSION: 1. Nonobstructing right nephrolithiasis. 2. Colonic diverticulosis. 3. Age-indeterminate compression fractures of L2 and L3 vertebral bodies favoring acute to subacute. 4. Comminuted fractures of the left ilium and fractures of the superior and inferior left pubic rami. Callus formation at each of these sites suggest subacute to early chronic. Finding is new compared to 04/04/2023. Electronically authenticated by: FERN NOLAN Date: 10/04/2023 11:31
[2023-10-04 09:55] LABS: Basophils Percent Auto 0.2 % (0.2-2.0); Eosinophils Percent Auto 0.5 % (0.9-7.0); Hemoglobin 9.2 g/dL (12.0-16.0); Immature Granulocytes Abs Auto 0.07 10^3/uL (0.00-0.03); Immature Granulocytes Pct Auto 0.8 % (0.0-0.5); Lymphocytes Absolute Auto 0.8 10^3/uL (1.2-3.8); Lymphocytes Percent Auto 8.7 % (20.5-60.0); Mean Corpuscular HGB Conc 29.7 g/dL (29.9-35.2); Mean Corpuscular Hemoglobin 28.9 pg (26.7-34.0); Mean Corpuscular Volume 97.5 fL (81.0-99.0); Mean Platelet Volume 10.2 fL (9.5-13.5); Monocytes Absolute Auto 0.7 10^3/uL (0.3-0.8); Monocytes Percent Auto 7.9 % (1.7-12.0); Neutrophils Absolute Auto 7.3 10^3/uL (1.4-6.5); Neutrophils Percent Auto 81.9 % (43.0-75.0); Platelet Count 242 10^3/uL (150-450); Red Blood Count 3.18 10^6/uL (4.20-5.40); Red Cell Distribution Width 14.2 % (11.0-15.0); White Blood Count 8.9 10^3/uL (4.0-11.0)
[2023-10-04 10:09] LABS: Alanine Aminotransferase 10 U/L (14-59); Albumin Globulin Ratio 0.7; Albumin Level 2.7 g/dL (3.4-5.0); Alkaline Phosphatase 111 U/L (46-116); Anion Gap 5.7; Aspartate Amino Transferase 10 U/L (15-37); Bilirubin Total 0.2 mg/dL (0.2-1.0); Calcium 8.9 mg/dL (8.5-10.1); Carbon Dioxide 35.2 mmol/L (21.0-32.0); Chloride 104 mmol/L (98-107); Estimated GFR (African America >60 (>=60); Estimated GFR (Non-African Ame >60 (>=60); Globulin 4.1 g/dL; Glucose 104 mg/dL (74-106); Sodium 142 mmol/L (136-145); Total Protein 6.8 g/dL (6.4-8.2)
[2023-10-04 10:10] LABS: Lactate/Lactic Acid 0.6 mmol/L (0.4-2.0)
[2023-10-04 10:18] LABS: Potassium 2.9 mmol/L (3.5-5.1)
[2023-10-04] MEDS: POTASSIUM CHLORIDE 10 MEQ ER TABLET 20 MEQ PO (11:02)
--- NOTE | 2023-10-04 13:40 | ECG_ITS ---
[facility] Test Date: 2023-10-04 Pat Name: VISHAL ROQUE Department: Room: - Gender: Female [employer]: : 1950 Requested By: [id number] Order Number: [id number] Reading MD: MIKE VELASQUEZ Measurements Intervals Stark Rate: 70 P: 78 MS: 178 QRS: 67 QRSD: 140 T: 58 QT: 448 QTc: 469 Interpretive Statements 1100 Sinus rhythm 2450 Right bundle branch block 9150 abnormal ECG Compared to ECG 04/04/2023 11:40:30 Right-axis deviation no longer present Electronically Signed On 10-06-2023 8:05:26 EDT by MIKE VELASQUEZ
== END 2023-10-04 12:31 | disposition home or self-care (01) ==
PROVIDERS: Emergency Provider Emergency Medicine Emergency Medical Services; PCP Nurse Practitioner Family
DX: E87.6 Hypokalemia (principal); Z90.49 Acquired absence of other specified parts of digestive tract; Z90.710 Acquired absence of both cervix and uterus
CPT/HCPCS: 36415; 74177; 80053; 83605; 83690; 85025; 93005; 99285; Q9967